=== PATIENT | female | born 1935 | race Caucasian/White ===

== ENCOUNTER 2025-04-02 07:48 | Outpatient (REF) | payer MEDICARE, MEDICAID, SELFPAY ==
--- OUTSIDE RECORDS SUMMARY | 2025-04-21 07:53 | XMS_ITS | Clinical Summary ---
Author Organization [facility] Address [address] [place] [address] Care Team Providers Care Rn Homecare Name Role Phone Marilu Ocampo MD Primary Care Provider [phone] Allergies Active AllergyReactionsCriticalityNoted DateCommentsAtorvastatinUnknown 10/22/20228544MsmofnlpvjwXteerpy11/21/2023Penicillin UJpdggit57/21/2023Sulfa OudmjeiyykdZlyxcOngv25/21/2023 bleeding Medications MedicationSigDispense QuantityRefillsLast FilledStart DateEnd DateStatus [...] ophthalmic solution 1 drop Daily as neededActive Nhcbzx-Mvyuiu-Svqrbaiq-Zn Sulf (Clear Eyes Complete) solution Administer into affected eye(s) Daily as neededActive True Metrix Blood Glucose Test test strip use 1 TEST STRIP to TEST BLOOD SUGAR three times a day02/19/2023ctive Active Problems No known active problems Encounters DateTypeDepartmentCare VjlsFtovfefoihx19/30/2025Telephone [facility] [address] [place] [address] Eleazar Hodges DPM No Show (Hx of No Shows)03/02/2025Travelfrom Last 3 Months Immunizations ImmunizationAdministration DatesNext DueInfluenza Whole05/16/2011Influenza, High Dose Seasonal, Preservative Free02/14/2018,03/07/2017,03/08/2016,03/15/2015 Influenza, High-dose Seasonal, Quadrivalent, Preservative Free02/08/2022, 02/18/2020Influenza, Seasonal, Quadrivalent, Mznwvxyiwd00/06/2021Influenza, seasonal, pfmgealtsu50/24/2014,03/23/2010Influenza, trivalent, adjuvanted 03/05/2019Pneumococcal Polysaccharide AKGU843106/11/20107710Iheq79/27/2016 Family History Medical HistoryRelationNameCommentsHeart diseaseFatherHypertensionFather HyperlipidemiaMotherHypertensionMotherMelanomaNeg HxRelationNameStatusComments FatherDeceasedMotherDeceased Social History Tobacco UseTypesPacks/DayYears UsedDateSmoking Tobacco: NeverSmokeless Tobacco: Never Tobacco Cessation:Counseling Given: Not Answered Alcohol UseStandard Drinks/WeekCommentsNot Currently0 (1 standard drink = 0.6 oz pure alcohol)CommentsUnknownSex and Gender InformationValueDate Recorded Sex Assigned at BirthNot on fileLegal GhvOqysyf34/15/2023 8:27 PM EDTGender IdentityNot on fileSexual OrientationNot on file Last Filed Vital Signs Vital SignReadingTime TakenCommentsBlood Xyrahlok797/8107 12:00 PM EDT Pulse--Temperature--Respiratory Rate--Oxygen Saturation--Inhaled Oxygen Concentration--Wwxuev28.7 kg (197 lb 12.8 oz)05/12/2024 10:11 AM ZIKQqpqbp669.5 cm (5' 2 )05/12/2024 10:11 AM ESTBody Mass Index36.18107/13/2023 10:11 AM EST Plan of Treatment Not on file Insurance Care Teams Team MemberRelationshipSpecialtyStart DateEnd Date Marilu Ocampo MD [address] [facility], [facility] [place] [address] PCP [facility]08/02/23
--- OUTSIDE RECORDS SUMMARY | 2025-04-21 07:53 | XMS_ITS | Encounter Summary ---
Author Organization [facility] tem Address [id number] [place] [address] Care Team Providers Care Polymer Scientist Name Role Phone Marilu Ocampo MD Primary Care Provider [phone] Encounter Details DateTypeDepartmentCare Team (Latest Contact Info)Jrbttybpeqz30/12/2025Telephone [facility] [address] [place] [address] [place] [address] Nia Izquierdo RN Social History Tobacco UseTypesPacks/DayYears UsedDateSmoking Tobacco: NeverSmokeless Tobacco: NeverAlcohol UseStandard Drinks/WeekCommentsNever0 (1 standard drink = 0.6 oz pure alcohol)[facility] UtilitiesAnswerDate RecordedIn the past 12 months has the gDecide, gas, oil, or water [employer] threatened to shut off services in your home?No5AUDIT-CAnswerDate RecordedFrequency of Alcohol ConsumptionNever 03/04/2019Average Number of DrinksNot on file03/04/2019Frequency of Binge DrinkingNot on file03/04/2019PHQ-2AnswerDate RecordedTotal Wlnpq235 PRAPARE - TransportationAnswerDate RecordedIn the past 12 [...] a part of a household?No5ChildcareAnswerDate RecordedChildcareUnknown 11/13/2018EmploymentAnswerDate JrdmfqpvSdtyvotadbYfqcqys93/12/2019Hunger ScreeningAnswerDate RecordedWithin the past 12 months we worried whether our food would run out before we got money to buy more.Never True03/02/2025Within the past 12 months the food we bought just didn't last and we didn't have money to get more.Never True03/02/2025Purpose - LifeAnswerDate RecordedPurpose and direction in paduQhtdlsk56/15/2021CommentsNoSex and Gender Information ValueDate RecordedSex Assigned at BirthNot on fileLegal FcaYkhrpw05/06/2015 11:21 AM EDTGender IdentityNot on fileSexual OrientationNot on filedocumented as of this encounter Miscellaneous Notes * Telephone Encounter - Nia Izquierdo RN - 04/15/2025 10:37 AM EST Patient is now in a LTC facility. documented in this encounter Plan of Treatment DateTypeDepartmentCare Team (Latest Contact Info)Volrrbowaqo10/19/2025 9:45 AM ESTAppointment [facility] [address] [place] [address] 05/19/2025 12:45 PM ESTOffice Visit [facility] [address] [place] [address] [place] [address] Eleazar Iglesias MD [facility] [place] [address] documented as of this encounter Goals GoalPatient Goal TypeAssociated ProblemsRecent ProgressPatient-Stated?Author SNF per Gely Lockhart LSW Note: Evaluation of progress towards goal: need to speak with pt when alert to discuss DC plan &/or speak with pt HCPOA documented as of this encounter Visit Diagnoses Not on filedocumented in this encounter Additional Health Concerns AssessmentNoted TimePHQ-9 Depression Total Score: 9:07 AM EDTA Body Mass Index follow-up plan has been documented for the lfowfyc7805/06/2019 1:52 PM ESTdocumented as of this encounter Care Teams Team MemberRelationshipSpecialtyStart DateEnd Date Marilu Ocampo MD [address] [facility] [place] [address] PCP - GeneralInternal Gbrworii36/4/24documented as of this encounter
--- OUTSIDE RECORDS SUMMARY | 2025-04-21 07:54 | XMS_ITS | Clinical Summary ---
Demographics Address [address] [place] [address] Home Phone Preferred Language Unknown Marital Status Unknown [employer] Affiliation Unknown Race Unknown Ethnic Group Unknown Author Organization [facility] Address [address] [place] [address], [address] [place] [address] Care Team Providers Care Inspector Boiler Name Role Phone Unavailable Primary Care Provider Unavailabl e Social History Tobacco UseTypesPacks/DayYears UsedDateSmoking Tobacco: Never Assessed CommentsUnknownSex and Gender InformationValueDate RecordedSex Assigned at Not on fileLegal RrqLvtgzi99/10/2013 6:45 PM ESTGender IdentityNot on fileSexual OrientationNot on file Plan of Treatment Not on file
--- OUTSIDE RECORDS SUMMARY | 2025-04-21 07:54 | XMS_ITS | Clinical Summary ---
Author Organization [facility] Address [address] [place] [address] Phone Care Team Providers Care Assistant Professor Of Anthropology Name Role Phone Unavailable Primary Care Provider Unavailabl e Social History Tobacco UseTypesPacks/DayYears UsedDateSmoking Tobacco: Never Assessed CommentsUnknownSex and Gender InformationValueDate RecordedSex Assigned at Not on fileLegal DqyLxcsol53/26/2022 5:42 AM ESTGender IdentityNot on fileSexual OrientationNot on file Plan of Treatment Not on file
--- OUTSIDE RECORDS SUMMARY | 2025-04-21 07:54 | XMS_ITS | Patient Health Record ---
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) ActiveconfirmedProblemHypertension (44654698)HTN (hypertension) (I10)Active confirmedProblemDiabetes mellitus type 2 (disorder) (52281517)DM2 (diabetes mellitus, type 2) (E11.9)ActiveconfirmedProblemNephrolithiasis (99084196) Nephrolithiasis (N20.0)ActiveconfirmedProblemType II diabetes mellitus uncontrolled (329301855)Diabetes mellitus type II, uncontrolled (E11.65)Active confirmedProblemAtrial fibrillation (98472081)PAF (paroxysmal atrial fibrillation) (I48.0)ActiveconfirmedProblemUlcer of left foot (disorder) (447233382)Foot ulcer, left (L97.529)ActiveconfirmedProblemHyperphosphaturia (03119422)Hyperphosphaturia (E83.39)Activeconfirmed Plan Of Treatment Pending Test Test [...] End Date [place] [address] [place] [address] [id number] Papo Josephelf - patient is the [id number] 2001[place]ICAID [place] PRIMARY ONLY [address] [place]ICE [place], [place] [id number] Papo Josephelf - patient is the [id number] 2013 Medical (General) History Medical History History ICD Code History of hyperlipidemia History of hypertensionSurgical History Surgery Date(Month/Year) cataract surgery, right History of total hysterectomy 8972-7525 History of hysterectomyHospitalization History Reason Date(Month/Year) [facility] 07/2018
--- OUTSIDE RECORDS SUMMARY | 2025-04-21 07:55 | XMS_ITS | Clinical Summary ---
Author Organization [employer] tem Address [id number] [place] [address] Care Team Providers Care Rust Proofer Name Role Phone Marilu Ocampo MD Primary Care Provider [phone] Allergies Active AllergyReactionsCriticalityNoted UawtNwkhwuhpFcholovcefchWfvlah03/01/2017 ErdxuzoshncPqweh87/01/8225TxsigyonmzmKrjuts10/01/2017Sulfa (Sulfonamide Antibiotics)pfgzpxiuPwxw16/01/2017 Medications MedicationSigDispense QuantityRefillsLast FilledStart DateEnd DateStatus acetaminophen (TYLENOL ARTHRITIS) 650 mg 8 hr tablet TAKE 1 TABLET BY MOUTH ONCE DAILY NEEDED *NEW PRESCRIPTION REQUEST* 90 tablet 1005Active Additional Information Patient taking differently: 650 mg oral As needed, pain, Reported on 03/02/2025 apixaban (ELIQUIS) 5 mg tablet Indications:Paroxysmal atrial fibrillation ([facility])TAKE 1 TABLET BY MOUTH EVERY MORNING AND 1 BEFORE BEDTIME 60 tablet 5Active acarbose (PRECOSE) 50 mg tablet Indications:Type 2 diabetes mellitus without complication, with long-term current use of insulin ([facility])TAKE 1 TABLET(50 MG) BY MOUTH IN THE [...] 24 hr tablet Indications:Essential hypertension,Paroxysmal atrial fibrillation ([facility]), Diastolic dysfunction,Nonrheumatic mitral valve regurgitationTake 1 tablet (25 mg total) by mouth in the morning. 28 tablet 5Active insulin glargine,hum.rec.anlog (BASAGLAR KWIKPEN U-100 INSULIN) 100 unit/mL (3 mL) insulin pen Indications:Type 2 diabetes mellitus without complication, with long-term current use of insulin ([facility])INJECT 25 UNITS SUBCUTANEOUSLY EVERY MORNING AND 20 UNITS EVERY EVENING 15 mL 1005Active Additional Information Patient taking differently: 25 Units subcutaneous 2 times daily, INJECT 25 UNITS SUBCUTANEOUSLY EVERY MORNING AND 20 UNITS EVERY EVENING, Reported on 03/02/2025 blood sugar diagnostic (TRUE METRIX GLUCOSE TEST STRIP) strip Indications:Type 2 diabetes mellitus without complication, with long-term current use of insulin ([facility])USE TO TEST BLOOD SUGARS TWICE DAILY *NEW [...] necrosis 03/03/2025Type 2 diabetes mellitus with pressure eqnlfg4903/03/2025ltered mental status, unspecified altered mental status type03/01/2025holedocholithiasis [...] type06/19/2024Type II diabetes mellitus with neurological manifestations 06/19/2024bnormal gait04/28/2024Need for assistance with personal care 04/28/2024ge-related osteoporosis without current pathological fracture 4Diastolic pomyptpzzbu51/26/2023Mitral valve cqzznkmparkxv32/26/2023 Tricuspid valve vhsaimejzocbq05/26/2023Carotid wwtyexvkqborutj33/26/2023Right lower quadrant abdominal pain02/18/2021Other ryvsmqivxwvbna10/17/2021 Mbzzqvswwenrxd24/17/2021Type 2 diabetes mellitus without complication, with long-term current use of nqdxxun9402/18/2021Kidney lniffy4112/15/2020 Overview (11/01/2021): 12/15/20: Recent gross hematuria. Non [...] scheduled to see gynecology as well. Gross fxmhwzuhn20/14/2021Multiple closed fractures of ribs of left side 11/15/2020evere obesity (BMI 35.0-39.9) with mdkuuzsjltz40/24/2021History of locetzegznjprh10/04/2021ssential ubhkudgxcywc12/04/2021aroxysmal atrial xxjehxzcxsat64/04/2021hest pain06/19/20208963Rxxnmzounfzf38/03/2019 Resolved Problems ProblemNoted DateDiagnosed DateResolved DateObesity (BMI 30-39.9)08/05/2020 08/25/2020 Encounters DateTypeDepartmentCare LeanRsuvxeptwta71/12/2025Telephone [facility] [address] [place] [phone] Nia Izquierdo RN 03/09/2025Refill Ghada Billingsn [facility] - Medical Oncology [address] [place] [phone] Marilu Ocampo MD 03/02/2025[facility]phone [facility] [address] [place] [phone] Marian Cochran CMA 02/28/2025 10:40 PM EDT - 03/03/2025 4:07 PM EDTHospital Encounter [facility] [address] [place] [address] Eleazar Pierre MD Muhammad, MD Terrence Rapp Muhamid M, MD Altered mental status, unspecified altered mental status type (Primary Dx) Discharge Disposition: Alf Facility-Medicare Cert02/28/2025Travel 02/10/2025[facility] [address] [place] [phone] Arvin Moreno, Age-related osteoporosis without current pathological fracture; History of ouoizlqnkqlyvj94/09/2025Refill Ghada L [facility] - Medical Oncology [address] [place] [phone] Marilu Ocampo MD 02/04/2025 9:00 AM EDTOffice Visit [facility] [address] [place] [phone] Arvin Moreno, Callus of foot (Primary Dx); Open wound of left foot, initial wolourmhq12/02/2025Travelfrom Last 3 Months Immunizations ImmunizationAdministration DatesNext DueInfluenza High Dose Preservative Free IM 02/14/2018,03/07/2017,03/08/2016,03/15/2015Influenza Vaccine, Quadrivalent, Eipsxrnhap23/06/2021Influenza Whole05/16/2011Influenza, High-dose, Quadrivalent 02/08/2022,02/18/2020Influenza, Im Trivalent Isptgnxuhfxn99/24/2014,03/23/2010 Influenza, Trivalent, Mumlreyefz07/02/2019Pneumococcal Rvijqkwhhzjmlt95/08/2011 Tdap1 Family History Medical HistoryRelationNameCommentsDiabetesMotherBreast cancerNieceBreast cancer SisterCancerSonRelationNameStatusCommentsBrotherDeceasedFatherDeceasedMaternal GrandfatherDeceasedMaternal GrandmotherDeceasedMotherDeceasedNieceAlivePaternal GrandfatherDeceasedPaternal GrandmotherDeceasedSisterDeceasedSonDeceased Social History Tobacco UseTypesPacks/DayYears UsedDateSmoking Tobacco: NeverSmokeless Tobacco: NeverAlcohol UseStandard Drinks/WeekCommentsNever0 (1 standard drink = 0.6 oz pure alcohol)[facility] UtilitiesAnswerDate RecordedIn the past 12 months has the [employer], gas, oil, or water [employer] threatened to shut off services in your home?No5AUDIT-CAnswerDate RecordedFrequency of Alcohol ConsumptionNever 03/04/2019Average Number of DrinksNot on file03/04/2019Frequency of Binge DrinkingNot on file03/04/2019PHQ-2AnswerDate RecordedTotal Asnhx870 PRAPARE - TransportationAnswerDate RecordedIn the past 12 [...] a part of a household?No5ChildcareAnswerDate RecordedChildcareUnknown 11/13/2018EmploymentAnswerDate XumizrjaAzyvqijvauGgkgtoc25/12/2019Hunger ScreeningAnswerDate RecordedWithin the past 12 months we worried whether our food would run out before we got money to buy more.Never True03/02/2025Within the past 12 months the food we bought just didn't last and we didn't have money to get more.Never True03/02/2025Purpose - LifeAnswerDate RecordedPurpose and direction in yatjSqvdqvp88/15/2021CommentsNoSex and Gender Information ValueDate RecordedSex Assigned at BirthNot on fileLegal BjsZmygdg10/06/2015 11:21 AM EDTGender IdentityNot on fileSexual OrientationNot on file Last Filed Vital Signs Vital SignReadingTime TakenCommentsBlood Cnnfcrhg446/55003/03/2025 11:57 AM EDT Egbiz874703/03/2025 11:57 AM OSWJacdhebfoqh32.6 ??C (97.8 ??F)03/03/2025 11:57 AM EDTRespiratory Ilmn643803/03/2025 11:57 AM EDTOxygen Mclzfetacf81%03/03/2025 11:57 AM EDTInhaled Oxygen Concentration--Ccykzj25.3 kg (163 lb 14.4 oz)03/03/2025 4:37 AM QOPDissqc020.5 cm (5' 2 )03/01/2025 2:31 AM EDTBody Mass Index29.98 03/01/2025 2:31 AM EDT Plan of Treatment DateTypeDepartmentCare Team (Latest Contact Info)Zpgcxgcbpsw88/19/2025 9:45 AM ESTAppointment [facility] [address] [place] [phone] 05/19/2025 12:45 PM ESTOffice Visit [facility] [address] [place] [address] [place] [address] Eleazar Iglesias MD [address] [place] [address] Health MaintenanceDue DateLast DoneCommentsMedicare Annual Wellness Visit 1935Zoster (Shingles) Vaccine (1 of 2)08/29/1985RSV ( or age 60+ yrs) (1 - 1-dose 75+ series)03/28/2011Fall Risk Uflshiggp73/25/878893/ Influenza Cnoqzdp02/09/2023, 02/08/2022, 03/09/2021, Additional history existsDepression Zfmrtegty93/08/2024Tobacco Screening DTaP,Tdap and Td Vaccines (2 - Td or Tdap)03/30/2026 03/30/2016 Goals GoalPatient Goal TypeAssociated ProblemsRecent ProgressPatient-Stated?Author SNF per eGly Lockhart LSW Note: Evaluation of progress towards goal: need to speak with pt when alert to discuss DC plan &/or speak with pt HCPOA Medical Devices ImplantedTypeAreaManufacturerDevice IdentifierShelf Expiration DateModel / Serial / LotLens Iol Ultrasert 24.0d - [id number] 24.0 - [id number] Implanted:Qty: 1 on 03/04/2019 by Nina Wheeler MD at [facility]: [id number] 24.0 / [id number] 24.0 / [id number] Procedures Procedure NamePriorityDate/TimeAssociated DiagnosisCommentsBEDSIDE GLUCOSE Xvldvyt8603/03/2025 12:22 PM EDT BEDSIDE WFBWZSWSieuaxd66/30/2025 11:59 AM EDT BEDSIDE VOBQOYZSpybgzs97/30/2025 8:22 AM EDT EXTRA TUBES BLUE VBSEswdxdr52/30/2025 5:18 AM EDT EXTRA PWNAWWhezsxm24/30/2025 5:18 AM EDT CBC WITH AUTO ACEQFQBDUSYRZukatxo76/30/2025 5:17 AM EDT KTPQDWJYFYujuggb59/30/2025 5:17 AM EDT COMPREHENSIVE METABOLIC NMGCJNrsurgd41/30/2025 5:17 AM EDT BEDSIDE POAIIKEYbfqwqf22/29/2025 7:59 PM EDT SAEKQFLCJAtayzju89/29/2025 5:46 PM EDT AOGURUMFGYuedokv61/29/2025 5:46 PM EDT BEDSIDE CZHHXXIJldurij72/29/2025 4:49 PM EDT THIAMIN (VITAMIN B1), YQKdhzxaj45/29/2025 12:59 PM EDT BEDSIDE TSOHLRVKqkmijw81/29/2025 11:35 AM EDT EXTRA TUBES BLUE ZJSGifwpdz58/29/2025 5:11 AM EDT VITAMIN D 25 HYDROXYAdd-On03/02/2025 5:11 AM EDT VITAMIN F65Lee-Oa28/29/2025 5:11 AM EDT EXTRA WXNNURsllbrd68/29/2025 5:11 AM EDT CBC WITH AUTO XDULWXPUAWLWWmulznm44/29/2025 5:11 AM EDT HKAQCUXOHMczptaw97/29/2025 5:11 AM EDT COMPREHENSIVE METABOLIC ZAGWMNmhbwdr26/29/2025 5:11 AM EDT BEDSIDE PRGIBCEIctmwkg03/29/2025 12:46 AM EDT BEDSIDE KUTMAUOIdnaujt35/28/2025 9:04 PM EDT BEDSIDE CVYRWQZUqlwopw76/28/2025 4:16 PM EDT EXTRA TUBES SST SOKKygjqwq14/28/2025 12:06 PM EDT EXTRA SYOLHZfegjgx10/28/2025 12:06 PM EDT KHBHYRCLyqocgl91/28/2025 12:06 PM EDT BEDSIDE YPVKPBRCaqtkkf11/28/2025 11:13 AM EDT BEDSIDE MRRFUHCDkatoke78/28/2025 4:23 AM EDT BEDSIDE CQAWGPFMcdtfdp95/28/2025 1:20 AM EDT TROP I, HIGH SENSITIVITY 1 LIQXNJKX02/28/2025 12:06 AM EDT XR CHEST 1 WTUTBQ9203/01/2025 12:[address] BRAIN WO FBGUQRRU86/28/2025 12:06 AM EDT ECG 12-AQFURDXD91/27/2025 11:03 PM EDT EXTRA TUBES BLUE NQNSmwxrcp80/27/2025 11:03 PM EDT EXTRA FHXBBSqjmmfk30/27/2025 11:03 PM EDT HEMOGLOBIN Q7BMok-Ke28/27/2025 10:59 PM EDT TROPONIN I, HIGH SENSITIVITY 0 BGCFHKUO80/27/2025 10:59 PM EDT TROPONIN I, HIGH SENSITIVITY 0 CWNCUDJQ53/27/2025 10:59 PM EDT QFQFKXONQJUFC79/27/2025 10:59 PM EDT COMPREHENSIVE METABOLIC ZXKUQXLUZ34/27/2025 10:59 PM EDT CBC WITH AUTO FPQIZCIAWNZCDFYK56/27/2025 10:59 PM EDT POCT NURSING URINE MACROSCOPIC OZLftxokz88/27/2025 10:56 PM EDT ER EXTRA URINE LRLYSYLEEN21/27/2025 10:54 PM EDT ER EXTRA XWQFNEPGD19/27/2025 10:54 PM EDT URINE UTGXXIARGJQ31/27/2025 10:54 PM EDT from Last 3 Months Results * (ABNORMAL) Bedside Glucose *Place/Obtain serum glucose if >500 per glucometer. (03/03/2025 12:22PM EDT) Only the most recent of12 resultswithin the time period is included. ComponentValueRef RangeTest MethodAnalysis TimePerformed AtPathologist Signature Bedside Glucose (POC)388(H)65 - 99 mg/dL03/03/2025 12:27 PM [facility])Anatomical Location / LateralityCollection Method / VolumeCollection TimeReceived Timearterial/snriifkkt76/30/2025 12:22 PM EDT03/03/2025 12:27 PM EDT Narrative Authorizing ProviderResult TypeResult StatusMarilu Ocampo MDPOINT OF CARE TEST ORDERABLESFinal ResultPerforming OrganizationAddressCity/State/ZIP CodePhone Number [address] [place] [address], * Light Blue Top (03/03/2025 5:18 AM EDT) Only the most recent of3 resultswithin the time period is included. ComponentValueRef RangeTest MethodAnalysis TimePerformed AtPathologist Signature Extra TubeAuto Oyzoolur88/30/2025 7:01 AM [facility] Specimen (Source)Anatomical Location / LateralityCollection Method / Volume Collection TimeReceived TimeBloodVenous blood / Klhmvfz4603/03/2025 5:18 AM EDT 03/03/2025 5:41 AM EDT Narrative Authorizing ProviderResult TypeResult StatusMarilu Ocampo MDLAB BLOOD ORDERABLESFinal ResultPerforming OrganizationAddressCity/State/ZIP CodePhone Number [facility] [address] [place] [address], * (ABNORMAL) CBC auto differential (03/03/2025 5:17 AM EDT) Only the most recent of3 resultswithin the time period is included. ComponentValueRef RangeTest MethodAnalysis TimePerformed AtPathologist Signature WBC8.54 - 11 x10E9/L03/03/2025 5:47 AM EDTPWAYNE [facility]ALTHC[facility]IN CAMPUSRBC Count4.463.8 - 5.2 X10E12/L03/03/2025 5:47 AM EDTPWAYNE HEALTHCARE MAIN CAMPUSHemoglobin13.811.7 - 15.5 g/dL03/03/2025 5:47 AM EDTPWAYNE HEALTHCARE MAIN CAMPUSHematocrit39.935 - 47 %03/03/2025 5:47 AM EDTPWAYNE HEALTHCARE MAIN CAMPUSMCV9080 - 100 fL03/03/2025 5:47 AM EDTPWAYNE HEALTHCARE MAIN CAMPUSMCH30.927 - 34 pg03/03/2025 5:47 AM EDTPWAYNE HEALTHCARE MAIN CAMPUSMCHC34.532 - 36 g/dL03/03/2025 5:47 AM EDTPWAYNE HEALTHCARE MAIN CAMPUSRDW13.611.5 - 15 %03/03/2025 5:47 AM EDPREMIER HEALTH MIAMI VALLEY HOSPITALPlatelet Tfrvm383017 - 450 X10E9/L03/03/2025 5:47 AM EDT [facility]MPV8.57 - 12 fL03/03/2025 5:47 AM EDT [facility]ALTHNeutrophils %49.9%03/03/2025 5:47 AM EDT [facility]ALTHLymphocytes %33.6%03/03/2025 5:47 AM EDT [facility]Monocytes %9.0%03/03/2025 5:47 AM EDT [facility]ALTHEosinophils %6.9%03/03/2025 5:47 AM EDT [facility]Basophils %0.6%03/03/2025 5:47 AM EDT [facility]ALTHNeutrophils Absolute (A)4.31.5 - 6.6 10*3/uL 03/03/2025 5:47 AM EDPREMIER HEALTH MIAMI VALLEY HOSPITALLymphocytes Absolute2.9 1.0 - 3.5 10*3/uL03/03/2025 5:47 AM EDPREMIER [facility]ALTH [facility] Monocytes Absolute0.80.0 - 0.9 10*3/uL03/03/2025 5:47 AM [facility]ITALEosinophils Absolute0.6(H)0.0 - 0.4 10*3/uL03/03/2025 5:47 AM EDPREMIER HEALTH MIAMI VALLEY HOSPITALBasophils Absolute0.00.0 - 0.2 10*3/uL 03/03/2025 5:47 AM [facility]OSPITALDifferential Type AUTOMATED HCZVZISIMLNQ95/30/2025 5:47 AM [facility] Specimen (Source)Anatomical Location / LateralityCollection Method / Volume Collection TimeReceived TimeBloodVenous blood / UnknownVenipuncture / Unknown 03/03/2025 5:17 AM EDT03/03/2025 5:40 AM EDT Narrative Authorizing ProviderResult TypeResult StatusStephanpedrito Gonzalez SUPERVISOR COAL HANDLING-CNPLAB BLOOD ORDERABLESFinal ResultPerforming OrganizationAddressCity/State/ZIP Code Phone Number [facility] [address] [place] [address], * Magnesium (03/03/2025 5:17 AM EDT) Only the most recent of4 resultswithin the time period is included. ComponentValueRef RangeTest MethodAnalysis TimePerformed AtPathologist Signature MAGNESIUM1.91.8 - 2.6 mg/dL03/03/2025 6:14 AM [facility]pecimen (Source)Anatomical Location / LateralityCollection Method / VolumeCollection TimeReceived TimeBloodVenous blood / UnknownVenipuncture / Nuzlxak6103/03/2025 5:17 AM EDT03/03/2025 5:40 AM EDT Narrative Authorizing ProviderResult TypeResult StatusStepmu Gonzalez APRN-CNPLAB BLOOD ORDERABLESFinal ResultPerforming OrganizationAddressCity/State/ZIP Code Phone Number [facility] [address] [place] [address], * (ABNORMAL) Comprehensive metabolic panel (03/03/2025 5:17 AM EDT) Only the most recent of3 resultswithin the time period is included. ComponentValueRef RangeTest MethodAnalysis TimePerformed AtPathologist Signature EJZCFH774630 - 146 mmol/L03/03/2025 6:14 AM [facility] HOSPITALPOTASSIUM3.53.5 - 5.0 mmol/L03/03/2025 6:14 AM [facility] HOSPITALCHLORIDE10398 - 109 mmol/L03/03/2025 6:14 AM [facility] HOSPITALCARBON MKMEAZT8482 - 32 mmol/L03/03/2025 6:14 AM EDT [facility]ALTHANION GAP85 - 15 mmol/L03/03/2025 6:14 AM EDT [facility]ALTHBLOOD UREA UMBFHUOI678 - 27 mg/dL03/03/2025 6:14 AM [facility] HOSPITALCREATININE0.630.40 - 1.00 mg/dL 03/03/2025 6:14 AM [facility] HOSPITALComment:METHOD TRACEABLE TO IDMS OINDVCVQDZAGRVI437(H)65 - 99 mg/dL03/03/2025 6:14 AM EDT [facility]ALTHCALCIUM8.4(L)8.5 - 10.5 mg/dL03/03/2025 6:14 AM EDPREMIER HEALTH MIAMI VALLEY HOSPITALTOTAL PROTEIN5.7(L)6.0 - 8.0 g/dL 03/03/2025 6:14 AM [facility] HOSPITALALBUMIN3.33.2 - 5.3 g/dL03/03/2025 6:14 AM [facility] HOSPITALALKALINE QGPOSYBTQCX0610 - 130 U/L03/03/2025 6:14 AM [facility]OSPITALAST17<=41 U/L03/03/2025 6:14 AM [facility] ALT18<=31 U/L03/03/2025 6:14 AM [facility] BILIRUBIN,TOTAL1.4(H)0.3 - 1.2 mg/dL03/03/2025 6:14 AM [facility] HOSPITALEGFR Non-Race Aiayavaoz75>=60 ml/min/1.73sq.m003/03/2025 6:14 AM [facility]OSPITALComment: eGFR not reported due to non-numeric value for Creatinine. Reported eGFR is based on the CKD-EPI 2020 equation that does not use a race coefficient. Specimen (Source)Anatomical Location / LateralityCollection Method / Volume Collection TimeReceived TimeBloodVenous blood / UnknownVenipuncture / Unknown 03/03/2025 5:17 AM EDT03/03/2025 5:40 AM EDT Narrative Authorizing ProviderResult TypeResult StatusStepmu Gonzalez APRN-CNPLAB BLOOD ORDERABLESFinal ResultPerforming OrganizationAddressCity/State/ZIP Code Phone Number [address] [place] [address], * Potassium (03/02/2025 5:46 PM EDT)ComponentValueRef RangeTest MethodAnalysis TimePerformed AtPathologist SignaturePOTASSIUM3.73.5 - 5.0 mmol/L03/02/2025 6:03 PM [facility]pecimen (Source)Anatomical Location / LateralityCollection Method / VolumeCollection TimeReceived Time BloodVenous blood / UnknownVenipuncture / Oyjgzqo7003/02/2025 5:46 PM EDT 03/02/2025 5:48 PM EDT Narrative Authorizing ProviderResult TypeResult StatusMuhamfilippo Ocampo MDLAB BLOOD ORDERABLESFinal ResultPerforming OrganizationAddressCity/State/ZIP CodePhone Number [address] [place] [address], * Thiamin (Vitamin B1), WB (03/02/2025 12:59 PM EDT)ComponentValueRef RangeTest MethodAnalysis TimePerformed AtPathologist SignatureTHIAMIN (VITAMIN B1), [place] [address] - 180 nmol/L1 4:[address] [facility] [address] [facility] LABORATORIESComment: ADDITIONAL INFORMATION This test was developed and its performance characteristics determined by [facility] in a manner consistent with CLIA requirements. This test has not been cleared or approved by the U.S. Food and Drug Administration. Test Performed by: [place] [address] Server Programmer: Thai Barroso Ph.D.; CLIA# [id number] Specimen (Source)Anatomical Location / LateralityCollection Method / Volume Collection TimeReceived TimeBloodVenous blood / UnknownVenipuncture / Unknown 03/02/2025 12:59 PM EDT03/02/2025 1:07 PM EDT Narrative Authorizing ProviderResult TypeResult StatusTaeler Hank BULLOCKN-CNPEDUAR BLOOD ORDERABLESFinal ResultPerforming OrganizationAddressCity/State/[facility] CodePhone Number [facility] [address] [place] [phone], * (ABNORMAL) Vitamin D 25 hydroxy (03/02/2025 5:11 AM EDT)ComponentValueRef RangeTest MethodAnalysis TimePerformed AtPathologist SignatureVITAMIN D 25 HYD TOT19.6(L)30.0 - 100.0 ng/mL03/02/2025 10:42 PM [facility] LABORATORYSpecimen (Source)Anatomical Location / LateralityCollection Method / VolumeCollection TimeReceived TimeBloodVenous blood / UnknownVenipuncture / Ldbfuhr7703/02/2025 5:11 AM EDT03/02/2025 5:48 AM EDT Narrative [facility] - 03/02/2025 10:42 PM EDT Vitamin D status 25 [place] Vitamin D Deficiency <20 ng/mL Insufficiency ? 20-29 ng/mL Sufficiency ? 30-100 ng/mL Toxicity >100 ng/mL NOTE: A pediatric reference range has not been established by the cold storage worker of this kit. The [place] [employer] recommends a Vitamin D level of = or >20ng/mL in infants and children. Authorizing ProviderResult TypeResult StatusTaeler Hank COLLINSVertive ([email or web address])ROGELIO BLOOD ORDERABLESFinal ResultPerforming OrganizationAddressCity/State/ZIP CodePhone Number [facility] [address] [place] [address], * Vitamin B12 (03/02/2025 5:11 AM EDT)ComponentValueRef RangeTest MethodAnalysis TimePerformed AtPathologist SignatureVITAMIN [id number] - 914 pg/mL03/02/2025 10:39 PM [facility] LABORATORYSpecimen (Source)Anatomical Location / LateralityCollection Method / VolumeCollection TimeReceived Time BloodVenous blood / UnknownVenipuncture / Uqludrf0603/02/2025 5:11 AM EDT 03/02/2025 5:48 AM EDT Narrative Authorizing ProviderResult TypeResult StatusTaeler Hank COLLINSVertive ([email or web address])ROGELIO BLOOD ORDERABLESFinal ResultPerforming OrganizationAddressCity/State/ZIP CodePhone Number [facility] [address] [place] [address], * SST TOP (03/01/2025 12:06 PM EDT)ComponentValueRef RangeTest MethodAnalysis TimePerformed AtPathologist SignatureExtra TubeAuto Booxthsr15/28/2025 2:01 PM EDTPUPPER VALLEY MEDICAL CENTERpecimen (Source)Anatomical Location / LateralityCollection Method / VolumeCollection TimeReceived TimeBloodVenous blood / Reaxhvb6503/01/2025 12:06 PM EDT03/01/2025 12:09 PM EDT Narrative Authorizing ProviderResult TypeResult StatusRuqihaley Sapp MDLAB BLOOD ORDERABLESFinal ResultPerforming OrganizationAddressty/State/ZIP CodePhone Number [address] [address], [place] * Ammonia (03/01/2025 12:06 PM EDT)ComponentValueRef RangeTest MethodAnalysis TimePerformed AtPathologist LljxdlhuoGLSYVHO6102 - 35 umol/L03/01/2025 12:30 PM EDSOUTHVIEW MEDICAL CENTERpecimen (Source)Anatomical Location / LateralityCollection Method / VolumeCollection TimeReceived TimeBloodVenous blood / UnknownVenipuncture / Qefknjf9703/01/2025 12:06 PM EDT03/01/2025 12:08 PM EDT Narrative Authorizing ProviderResult TypeResult StatusKyle D Santoshotzer SUPERVISOR COAL HANDLING-CNPLAB BLOOD ORDERABLESFinal ResultPerforming OrganizationAddressCity/State/ZIP CodePhone Number [address] [place] [address], [place] * Troponin I, High Sensitivity 1 Hour (03/01/2025 12:06 AM EDT)ComponentValueRef RangeTest MethodAnalysis TimePerformed AtPathologist SignatureTROPONIN I, HIGH SENSITIVITY3<16 ng/L03/01/2025 1:23 AM [facility] Specimen (Source)Anatomical Location / LateralityCollection Method / Volume Collection TimeReceived TimeBloodVenous blood / UnknownVenipuncture / Unknown 03/01/2025 12:06 AM EDT03/01/2025 12:26 AM EDT Narrative Authorizing ProviderResult TypeResult StatusStevgina Pierre MDLAB BLOOD ORDERABLES Final ResultPerforming OrganizationAddressty/State/ZIP CodePhone Number [address] [address], [place] * X-ray chest 1 view (03/01/2025 [...] on 03/01/2025 12:52 AM Authorizing ProviderResult TypeResult StatusSteven Kal Pierre [facility]G DIAGNOSTIC IMAGING ORDERABLESFinal Result * CT brain [...] pole. No sign of ventricular outflow obstruction. Bbqo-lm-jfvyblvp global parenchymal volume loss notable disproportionate hippocampal [...] pole. No sign of ventricular outflow obstruction. Acyh-gk-izpavukd global parenchymal volume loss notable disproportionate hippocampal [...] on 03/01/2025 12:51 AM Authorizing ProviderResult TypeResult StatusStsandeep Pierre MDLuca CT ORDERABLES Final Result * ECG 12 lead (02/28/2025 11:03 PM EDT)Specimen (Source)Anatomical Location / LateralityCollection Method / VolumeCollection TimeReceived Time02/28/2025 11:03 PM EDT Narrative TRACEMASTERVUE - 03/29/2025 2:03 PM EDT Authorizing ProviderResult TypeResult StatusEleazar ANNE ORDERABLESFinal ResultPerforming OrganizationAddressCity/State/ZIP CodePhone Number TRACEMASTERVUE * Troponin I, High Sensitivity 0 Hour (02/28/2025 10:59 PM EDT)ComponentValueRef RangeTest MethodAnalysis TimePerformed AtPathologist SignatureTROPONIN I, HIGH SENSITIVITY3<16 ng/L02/28/2025 11:30 PM EDTPROM[facility] Specimen (Source)Anatomical Location / LateralityCollection Method / Volume Collection TimeReceived TimeBloodVenous blood / UnknownVenipuncture / Unknown 02/28/2025 10:59 PM EDT02/28/2025 11:03 PM EDT Narrative Authorizing ProviderResult TypeResult StatusEleazar BAUM BLOOD ORDERABLES Final ResultPerforming OrganizationAddressCity/State/ZIP CodePhone Number [facility] [address] [place] [address], * (ABNORMAL) Hemoglobin A1c (02/28/2025 10:59 PM EDT)ComponentValueRef RangeTest MethodAnalysis TimePerformed AtPathologist SignatureHEMOGLOBIN A1C11.5(H)4.4 - 5.6 %03/02/2025 11:39 AM [facility]ORYComment: ?ADA Guidelines ?Result ?HgbA1c ? Normal : ? less than 5.7 % ? Prediabetes : ?5.7 % ??to 6.4 % Diabetes : > 6.4 % ?Use with caution in patients with abnormal hemoglobin variants as ??the half-life of red blood cells and in vivo glycation rates are ??affected. EST. AVERAGE WNXXMLA549yh/dL03/02/2025 11:39 AM [facility] LABORATORYSpecimen (Source)Anatomical Location / LateralityCollection Method / VolumeCollection TimeReceived TimeBloodVenous blood / UnknownVenipuncture / Xmvogbr4202/28/2025 10:59 PM EDT02/28/2025 11:03 PM EDT Narrative Authorizing ProviderResult TypeResult StatusRuqihaley Sapp MDLAB BLOOD ORDERABLESFinal ResultPerforming OrganizationAddressCity/State/ZIP CodePhone Number [facility] [address] [place] [address], * (ABNORMAL) POCT Nursing Urine Macroscopic UA (02/28/2025 10:56 PM EDT) ComponentValueRef RangeTest MethodAnalysis TimePerformed AtPathologist [facility] Urine Specific Gravity1.0101.010, 1.015, 1.020, 1.7826602/28/2025 10:[facility] Urine Leukocyte Esterase DfemqgieYemhgfnn86/27/[address] [facility] KvvpfefAvmvolrhFbhmitif85/27/2025 10:59 PM [facility] Urine pH6.05.0, 6.0, 6.5, 7.0, 7.5, 8.0, 8.5, 5. 10:59 PM [facility] Urine ProteinNegativeNegative 02/28/2025 10:59 PM [facility] Urine Glucose >=1000 mg/dL(A)Rzrmesfz20/27/2025 10:59 PM [facility] Urine ChnzlugOnycetssDwqczhbo25/27/2025 10:59 PM [facility] Urine Urobilinogen0.2 E.U./dL02/28/2025 10:59 PM [facility] Urine BilirubinNegativeNegative 02/28/2025 10:59 PM [facility] Urine Blood/HGB Trace(A)Khnjejhu23/27/2025 10:59 PM [facility] Specimen (Source)Anatomical Location / LateralityCollection Method / Volume Collection TimeReceived QtsfZckau90/27/2025 10:56 PM EDT02/28/2025 10:59 PM EDT Narrative Authorizing ProviderResult TypeResult StatusEleazar Pierre MDPOINT OF CARE TEST ORDERABLESFinal ResultPerforming OrganizationAddressty/State/ZIP CodePhone Number [address] [place] [address], [place] * Extra Urine [place] (02/28/2025 10:54 PM EDT)ComponentValueRef RangeTest Method Analysis TimePerformed AtPathologist SignatureExtra TubeAuto Resulted 03/01/2025 12:02 AM [facility] An[facility] Location / LateralityCollection Method / VolumeCollection Time Received TimeUrineUrine specimen collection, clean catch / Mgrskgb6002/28/2025 10:54 PM EDT02/28/2025 11:03 PM EDT Narrative Authorizing ProviderResult TypeResult StatusStsandeep GRAHAM ORDERABLES Final ResultPerforming OrganizationAddDelaware County Memorial Hospitalty/State/ZIP CodePhone Number [address] [place] [address], [place] * Extra Urine (02/28/2025 10:54 PM EDT)ComponentValueRef RangeTest Method Analysis TimePerformed AtPathologist SignatureExtra TubeAuto Resulted 03/01/2025 12:02 AM [facility]Mer[facility] Hospitalimen (Source) Anatomical Location / LateralityCollection Method / VolumeCollection Time Received TimeUrineUrine specimen collection, clean catch / Gilaqlq8702/28/2025 10:54 PM EDT02/28/2025 11:03 PM EDT Narrative Authorizing ProviderResult TypeResult StatusStsandeep GRAHAM ORDERABLES Final ResultPerforming OrganizationAddDelaware County Memorial Hospitalty/State/ZIP CodePhone Number [address] [place] [address], [place] * (ABNORMAL) Urine Culture Urine, Clean Catch Midstream (02/28/2025 10:54 PM EDT)ComponentValueRef RangeTest MethodAnalysis TimePerformed AtPathologist SignatureCULTURE RTVXTYY05,000-50,000 CFU/mL Escherichia coli(A)03/03/2025 8:19 AM [facility] LABORATORYSpecimen (Source)Anatomical Location / LateralityCollection Method / VolumeCollection TimeReceived Time UrineUrine specimen collection, clean catch / Skbsfte9102/28/2025 10:54 PM EDT 02/28/2025 11:03 PM EDT Narrative [facility] - 03/03/2025 8:19 AM EDT Along [...] Sulfamethoxazole <=1.0: Susceptible Authorizing ProviderResult TypeResult StatusSteven Wing MDMICROBIOLOGY - GENERAL ORDERABLESFinal ResultPerforming OrganizationAddressCity/State/ZIP Code Phone Number [facility] [address] [place] [address], from Last 3 Months Insurance Advance Directives TypeDate RecordedPatient RepresentativeExplanationDNR Physician Order03/11/2021 11:35 AMAdvance Directive02/08/2021 1:30 PMMedical POA/Living Will * DNR [employer] (DNR-CCA) [place] (Latest Code Status on File) Date ActivatedDate InactivatedComments03/01/2025 1:09 AM03/03/2025 6:07 PM * DNR [employer] Arrest (DNR-CCA[place] ActivatedDate InactivatedComments02/18/2021 8:49 PM02/21/2021 2:59 PM * Full Code Date ActivatedDate InactivatedComments11/15/2020 8:42 PM11/24/2020 3:34 PM * DNR [employer]fort Care Arrest (DNR-CCA) [place] ActivatedDate InactivatedComments06/19/2020 4:13 PM06/19/2020 8:31 PM Care Teams Team MemberRelationshipSpecialtyStart DateEnd Date Marilu Ocampo MD [address] [place] [address] PCP - GeneralInternal Qdtsthsf10/4/24
--- OUTSIDE RECORDS SUMMARY | 2025-04-21 07:55 | XMS_ITS | Patient Health Record ---
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 Stress is when someone feels tense, nervous, anxious, or can't sleep at nightbecause their mind is troubledNot at allpatient entered dataIn the past year have you spent more than 2 nights in a row in a [facility], senior living, custodial center, orjuvenile correctional facility?Nopatient entered dataAre you [...] Type II diabetes ezio litus without complication (549416086) Type 2 diabetes mellitus without complications (E11.9) ActiveconfirmedProblemLong-term current use of insulin (845715679)FPC (current) use of insulin (Z79.4)ActiveconfirmedProblemEssential hypertension (94048058)Essential (primary) hypertension (I10)Activeconfirmed Comment:BP just above goal range will increase hctz continue losartan,Description:Essential hypertension ProblemAnxiety (29935581)Anxiety (F41.9)Activeconfirmed Comment:Continue with current drug regimen as able Continue developing coping strategies as able If mood intensifies, call office for further evaluation or go to ER, ProblemGastroesophageal reflux disease (343496921)GERD (gastroesophageal reflux disease) (K21.9)Activeconfirmed Comment:Recent onset heartburn triggered by specific food. Take pepcid as needed. Avoid irritating foods., ProblemHyperlipidemia (08048965)Hyperlipidemia (E78.5)03/21/2006ctiveconfirmed ProblemFunctional bowel disease (19915366)Functional bowel disease (K58.9) 04/13/2009ctiveconfirmedDescription:Irritable bowel syndromeProblemOsteoporosis (08262903)OP (osteoporosis) (M81.0)03/21/2006ctiveconfirmed Description:OsteoporosisProblemAtrial fibrillation (92937111)Atrial fibrillation (I48.91)Activeconfirmed Comment:recently hospitalized d/t recurrence of a-fib. patient had been previously diagnosed years ago but then was not followed by cardiology or PCP for years. 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)ActiveconfirmedProblemHip pain (98249041)Hip pain (M25.559)InactiveconfirmedProblemTear film insufficiency (31177943)Dry eyes, bilateral (H04.123)InactiveconfirmedProblemDry skin (87284637)Dry skin (L85.3) InactiveconfirmedComment:encouraged to moisturise regularly to prevent itching, ProblemWeakness of both legs (886189535931701)Weakness of both legs (R29.898) InactiveconfirmedComment:Will order PT, HH, and [employer] for strength training and gait training,ProblemNeck pain (89142077)Neck pain (M54.2)Inactiveconfirmed Comment:-advised OK to continue icing or using warm water treatment -having MRI of head done, ProblemHypocalcemia (1944328)Hypocalcemia (E83.51)Problem resolvedconfirmed ProblemVitiligo (44720745)Vitiligo (L80)Problem resolvedconfirmedProblem Paroxysmal supraventricular tachycardia (44076546)Paroxysmal supraventricular tachycardia (I47.1)06/10/2008Problem resolvedconfirmedProblemPerforation of tympanic membrane (78945781)Ear drum perforation (H72.90)Problem resolved confirmedComment:one large risk factor is nasal CPAP - will disallow from healing. likely causer for dizziness and hearing loss,Description:Perforation of tympanic membraneProblemRenal stone (85458261)Renal stone (N20.0)Problem resolvedconfirmedComment:currently asymptomatic. Keep appointment as scheduled with enamel burner . stay well-hydrated. monitor blood sugar daily. any onset hematuria, fever, abdominal pain, N/V should seek evaluation.,Problem Hypoglycemia (949349088)Hypoglycemia (E16.2)Problem resolvedconfirmedProblem Diverticulitis of colon (349226477)Diverticulitis of colon (K57.32)03/21/2006 Problem resolvedconfirmedProblemConstipation (40729416)CN (constipation) (K59.00)06/10/2008Problem resolvedconfirmedDescription:ConstipationProblem History of malignant neoplasm of brain (558403964)History of brain tumor (Z87.898)Problem resolvedconfirmedProblemSevere acute respiratory syndrome coronavirus 2 detected (finding) (4359386742118792)COVID-19 virus detected (U07.1)Problem resolvedconfirmedComment:patient has improved since having infection. no current concerns. has completed self-isolation period.,Problem Blood chemistry abnormal (126842360)Elevated TSH (R79.89)Problem resolved confirmedComment:due to recheck TSH,ProblemHealed pyelonephritis (disorder) (965746692)History of pyelonephritis (Z87.448)Problem resolvedconfirmed Plan Of Treatment Pending Test Test Name Order Date Vitamin D, 25-Hydroxy (75003) 04/09/2019 Insurance Providers Payer Name Payer Address Payer Phone Subscriber Number Group Number Insured Name Patient Relationship to Insured Coverage Start Date Coverage End Date Medicare NGS PPS [address] [place], [place] [id number] Riley Joseph - patient is the [id number] 2001DMedicaid[address] [place], [place] [id number], GraceSelf - patient is the [id number] 2023Medicaid Crossover[address] [place], [place] [id number], GraceSángel - patient is the [id number] 2023 Medical (General) History Medical History History [...]
== END 2025-04-02 07:49 | disposition home or self-care (01) ==
LOC: LAB 07:48
PROVIDERS: PCP Family Medicine; Visit Provider Physician Assistant
DX: R22.42 Localized swelling, mass and lump, left lower limb (principal); L85.1 Acquired keratosis [keratoderma] palmaris et plantaris

== ENCOUNTER 2025-04-02 15:15 | Outpatient (OUT) | payer MEDICARE, MEDICAID, SELFPAY ==
--- OUTSIDE RECORDS SUMMARY | 2019-06-18 05:30 | XMS_ITS | Continuity of Care Document ---
Author Organization [facility] Physicians Address [address] [place] [address] Phone Care Team Providers Care Poker Room Manager Name Role Phone Melanie Angulo MD, John Unavailable Unavailable Allergies, Adverse Reactions, Alerts Substance Reaction Status Criticality sulfabenzamide swelling Active No Informatio n PENICILLIN Cough Active No Information Medications Medication Instructions Dosage Effective Dates (start - stop) Status Comments Cardiamin 200 mcg-500 unit-200 mg capsule - Active Lipitor 40 mg tablet take 1 tablet by or al route every day 40 MG - Active Fani 128 2 % eye drops - Active Procedures Procedure Date Ophthal DX Image Post Retina I And R Uni Or Bi OFFICE/OUTPATIENT VISIT, NEW OCT No Charge Uni Or Bi Advance Directives Directive Yes / No Effective Date File Name No Information Encounters Encounter Description Practice Location Reason(s) For Visit Diagnoses Date Provider Providers Copied on Encounter OFFICE/OUTPAT IENT VISIT, [place] [facility] , [address] [place], [address], [place] tel:[phone] [place] retinal break (chief complaint) Floaters (chief complaint) PseudophakiaFuchs' corneal dystrophyVitreous degeneration, bilateralType 2 diabetes mellitus without complication 0 Melanie Lopez. [address], [address], [place], [place], [id number] , [place]. tel:[phone] Referring Provider: Rocio Echeverria, [address], [place], [address]. tel:[phone] Family History Family Member Type Diagnosis Age At Onset Problem (finding) Family history of Cance r Problem (finding) Family history of Diabe santa mellitus Payers Payer name Insurance type Covered alliance party ID Authoriza tiradha(s) Medicare [facility] [id number] Medicaid [facility] [id number] Social History Type Description Quantity Date Captured Comments Alcohol Use Details No Caffeine Use Details No Tobacco Use Status Current non-smoker Smoking Status Never smoker Non-Smoking Tobacco Use Details : No Details Available : No Details Available [id number] SexFemale Vital Signs Date / Time: Height Weight BMI Pulse Rate Blood Pressure Temperature Respiratory Rate Body Surface Area Head Circumference Head Circ. Percentile Wt./Jaime. Percentile BMI percentile Pulse Ox Inhaled Ox 9:41 AM 139/77 mm[Hg] Chief Complaint And Reason For Visit From encounter dated '06/18/2019 09:30'. retinal break (chief complaint). Description: The 83 year old female presents for evaluation of retinal break in the right eye. Hx of cornea problems OD. Floaters (chief complaint). Description: The patient is present for evaluation of Floaters in the right eye. It started about 1 month(s) ago. It occurs frequently. The onset was gradual. The condition is moderate. The condition is described as seeing black spots. Patient denies eye pain and flashes. Reason For Referral Reason For Referral No Information History Of Present Illness Encounter Date Complaint History Of Prese nt Illness retinal break The 83 year old female presents for evaluation of retinal break in the right eye. Hx of cornea problems OD. Floaters The patient is p resent for evaluation of Floaters in the right eye. It started about 1 month(s) ago. It occurs frequently. The onset was gradual. The condition is moderate. The condition is described as seeing black spots. Patient denies eye pain and flashes. Functional Status Date Functional Assessmen t No Information Instructions Date Instruction Additional Infor mation Impression/Plan Related to Pseud ophakia Impression/Plan Related to Fuchs ' corneal dystrophy Impression/Plan Related to Vitre ous degeneration, bilateral Impression/Plan Related to Type 2 diabetes mellitus without complication Assessments Type Assessment Date assessment Pseudophakia impression Pseudophakia: Z96.1. Bilateral J assessment Fuchs' corneal dystrophy 2019 impression Fuchs' corneal dystrophy: H18.51 . Bilateral assessment Vitreous degeneration, bilateral impression Vitreous degeneration, bilateral : H43.813. Bilateral assessment Type 2 diabetes mellitus without complication impression Type 2 diabetes damon itus without complication: E11.9. Bilateral Patient Care Teams Name Effective Dates (start - stop) Status Members No Information
--- OUTSIDE RECORDS SUMMARY | 2025-04-02 15:25 | XMS_ITS | Clinical Summary ---
Author Organization [facility] Address [address] [place] [address] Care Team Providers Care Human Geography Faculty Member Name Role Phone Marilu Ocampo MD Primary Care Provider [phone] Allergies Active AllergyReactionsCriticalityNoted DateCommentsAtorvastatinUnknown 10/22/20221546UrfvwdalqjdFypkxun53/21/2023Penicillin RLblxwnj18/21/2023Sulfa CqzkpkllgquOosjsGycu12/21/2023 bleeding Medications MedicationSigDispense QuantityRefillsLast FilledStart DateEnd DateStatus potassium citrate CR (Urocit-K-15) 15 mEq ER tablet every 12 (twelve) hours.Active losartan-hydroCHLOROthiazide (Hyzaar) 50-12.5 MG tablet 1 (one) time each day at the same time.Active dilTIAZem CD (Cartia XT) 180 MG 24 hr capsule 1 capsule 1 (one) time each day at the same time.Active betamethasone dipropionate 0.05 % cream apply to affected areas on abdomen, back (avoid face and skin folds) Externally bid prn (hold when clear) for 30 days3Active atorvastatin (Lipitor) 40 MG tablet 1 (one) time each day at the same time.Active VITAMIN D PO Vitamin DActive Acarbose (PRECOSE PO) PrecoseActive Insulin Detemir (LEVEMIR FLEXPEN SC) Levemir FlexPenActive Apixaban (ELIQUIS PO) EliquisActive triamcinolone (Kenalog) 0.1 % cream Indications:Xerosis cutis1 application to affected areas on the body avoiding face, groin, and axilla topically bid as needed for 30 day(s) 454 g ctive acetaminophen (Tylenol 8 Hour) 650 MG ER tablet Take 650 mg by mouth every 8 (eight) hours if neededActive Basaglar KwikPen 100 UNIT/ML pen inject 20 units subcutaneously twice a dayActive metFORMIN XR (Glucophage-XR) 500 MG 24 hr tablet Take 500 mg by mouth in the morning and 500 mg in the evening. Take with meals. Active metoprolol succinate XL (Toprol-XL) 25 MG 24 hr tablet Take 25 mg by mouth in the morning.05/16/2023ctive omeprazole (PriLOSEC) [address] capsule Take 40 mg by mouth in the morning.Active sertraline (Zoloft) 50 MG tablet Take 50 mg by mouth Daily05/01/2023ctive sodium chloride (Fnai 128) 2 % ophthalmic solution 1 drop Daily as neededActive Ifffsa-Jukuhr-Cxvrhnck-Zn Sulf (Clear Eyes Complete) solution Administer into affected eye(s) Daily as neededActive True Metrix Blood Glucose Test test strip use 1 TEST STRIP to TEST BLOOD SUGAR three times a day02/19/2023ctive Active Problems No known active problems Encounters DateTypeDepartmentCare KoyjJchifprzsyj92/30/2025Telephone [facility] [address] [place] [address] Eleazar Hodges DPM No Show (Hx of No Shows)03/02/2025Travelfrom Last 3 Months Immunizations ImmunizationAdministration DatesNext DueInfluenza Whole05/16/2011Influenza, High Dose Seasonal, Preservative Free02/14/2018,03/07/2017,03/08/2016,03/15/2015 Influenza, High-dose Seasonal, Quadrivalent, Preservative Free02/08/2022, 02/18/2020Influenza, Seasonal, Quadrivalent, Nrqdemynvo98/06/2021Influenza, seasonal, /24/2014,03/23/2010Influenza, trivalent, adjuvanted 03/05/2019Pneumococcal Polysaccharide VABP244106/11/20101479Javf57/27/2016 Family History Medical HistoryRelationNameCommentsHeart diseaseFatherHypertensionFather HyperlipidemiaMotherHypertensionMotherMelanomaNeg HxRelationNameStatusComments FatherDeceasedMotherDeceased Social History Tobacco UseTypesPacks/DayYears UsedDateSmoking Tobacco: NeverSmokeless Tobacco: Never Tobacco Cessation:Counseling Given: Not Answered Alcohol UseStandard Drinks/WeekCommentsNot Currently0 (1 standard drink = 0.6 oz pure alcohol)CommentsUnknownSex and Gender InformationValueDate Recorded Sex Assigned at BirthNot on fileLegal WjfHrhhan14/15/2023 8:27 PM EDTGender IdentityNot on fileSexual OrientationNot on file Last Filed Vital Signs Vital SignReadingTime TakenCommentsBlood Ggkobyzr470/8107 12:00 PM EDT Pulse--Temperature--Respiratory Rate--Oxygen Saturation--Inhaled Oxygen Concentration--Qnuvbl70.7 kg (197 lb 12.8 oz)05/12/2024 10:11 AM TUXGcsdmq466.5 cm (5' 2 )05/12/2024 10:11 AM ESTBody Mass Index36.18107/13/2023 10:11 AM EST Plan of Treatment Not on file Insurance Care Teams Team MemberRelationshipSpecialtyStart DateEnd Date Marilu Ocampo MD [address], [facility] [place] [address] [facility]
--- OUTSIDE RECORDS SUMMARY | 2025-04-02 15:25 | XMS_ITS | Patient Health Record ---
Author Organization [facility] vices Address [address] [place], [place] [address] Care Team Providers Care Cognos Bi Developer Name Role Phone Trini De León Primary Care Provider Allergies Allergen (clinical drug ingredient) Drug/Non Drug Allergy documented on EMR Reaction Allergy Type Onset Date Status penicillin G Penicillin G Pot in Dextrose Cough Drug Allergy 08/17/2020 Active mirtazapine Remeron Comments: flu like symptoms Drug Allergy 08/17/2020 Active sulfadiazine sulfADIAZINE Edema Drug Allergy 08/17/2020 Active atorvastatin Atorvastatin Comments: Reflux Drug Allergy 08/17/2020 Active Reason For Referral No Information Medications Medication SIG (Take, Route, Frequency, Duration) Notes Start Date End Date Status Easy Touch Pen Red Devil 31G X 8 MM use 1 PEN NEEDLE to inject MEDICATION subcutaneously twice a day; Duration: 45 ActiveNystatin 165415 UNIT/GMas directed External Twice a day; Duration: 15 Not-TakingBlood Glucose Test1 (one) In Vitro three times daily; Duration: 90 days01/21/2015Not-TakingSertraline HCl 50 MGtake 1 tablet by mouth once daily; Duration: 90ActiveAcetaminophen ER 650 MG1 tablet as needed Orally once a day 02/07/2023ctiveEliquis 5 MG1 tablet Orally Twice a day; Duration: 90 daysActive metFORMIN HCl ER 500 MGtake 1 tablet by mouth twice a day with meals; Duration: 90ActiveAcarbose 50 MGtake 1 tablet with a meal Orally twice a day; Duration: 90 daysActiveLosartan Potassium 50 MG1 tablet Orally Once a day; Duration: 90 days ActiveAtorvastatin Calcium 20 MG1 tablet Orally Once a day; Duration: 90 days ActiveMetoprolol Succinate ER 25 MG1 tablet Orally Once a day; Duration: 90 days ActiveBasaglar KwikPen 100 UNIT/ML20 units Subcutaneous twice a day; Duration: 90 daysActive Immunizations Vaccine Route Administration Date Status Comme nts *Pneumococcal polysaccharide ACJ63-Hsvcwyh IM Intramuscular 04/11/2011 Administered Status:Prelim inary ,Reason:Given or N/A Influenza (split), 3 yrs and above IM Intramuscular 03/23/2010 Administered Status:Prelim inary ,Reason:Given or N/A Influenza (split), 3 yrs and above IM Intramuscular 02/25/2014 Administered Status:Comple te ,Reason:Given or N/A Influenza (split), 3 yrs and above OTH Other/Miscellaneous 03/15/2015 Administered Status:Comple te ,Reason:Given or N/A Influenza, high dose seasonal OTH Other/Miscellaneous 03/07/2017 Administered Status:Comple te ,Reason:Given or N/A ,see scanned document Influenza, high dose seasonal OTH Other/Miscellaneous 02/14/2018 Administered Status:Comple te ,Reason:Given or N/A ,see scanned document Social History Tobacco Use: Social History Observation Description Date Details (start date - stop date) Never Smoker NA - NA Sex Assigned At : Social History Observation Description Sex Assigned At Female Household Question Answer Notes Number of adults in household: 1 Number of children in household:0Tobacco Use/Smoking Question Answer Notes Tobacco use: nonsmoker patient enter ed data CAGE-AID Questionnaire (2018 Edition) Question Answer Notes Have you ever felt that you ought to cut down on your drinking or drug use? No patient entered data Have people annoyed you by c riticizing your drinking or drug use? No patient entered data Have you ever felt bad or gu ilty about your drinking or drug use? No patient entered data Have you ever had a drink or used drugs first thing in the morning to steady your nerves or to get rid of a hangover? No patient entered data CAGE-AID Score 0 InterpretationNegativePRAPARE Question Answer Notes Date Completed/Updated: 05/17/2023 kamari nt entered data What is your current housing situation? I have housing patient entered data Are you worried about losing your housing? No patient entered data What is the highest level of school that you have finished? High school diploma or GED patient entered data What is your current work situation? Otherwise unemployed but not seeking work (ex. 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 Check all that apply I do not have problems meeting my needs Has lack of transportation kept you from medical appointments, meetings, work or from getting things needed for daily living?NoHow often do you see or talk to people that you care about and feel close to? (For example: talkingto friends on the phone, visiting friends or family, going to yazidism or club meetings)1 or 2 times a weekpatient entered dataHow stressed are you? Stress is when someone feels tense, nervous, anxious, or can't sleep at nightbecause their mind is troubledNot at allpatient entered dataIn the past year have you spent more than 2 nights in a row in a prison, halfway, assisted center, orjuvenile correctional facility?Nopatient entered dataAre you a refugee?Nopatient entered dataWhat country are you from?[place] Statespatient entered dataDo you feel physically and emotionally safe where you currently live?Yespatient entered dataIn the past year, have you been afraid of your partner or ex-partner?Nopatient entered dataPRAPARE Score:5 Problems Problem Type SNOMED Code ICD Code Onset Dates Problem Status W/U Status Risk Notes Problem Type II diabetes ezio litus without complication (363404671) Type 2 diabetes mellitus without complications (E11.9) ActiveconfirmedProblemLong-term current use of insulin (199048025)prison (current) use of insulin (Z79.4)ActiveconfirmedProblemEssential hypertension (35979460)Essential (primary) hypertension (I10)Activeconfirmed Comment:BP just above goal range will increase hctz continue losartan,Description:Essential hypertension ProblemAnxiety (98801551)Anxiety (F41.9)Activeconfirmed Comment:Continue with current drug regimen as able Continue developing coping strategies as able If mood intensifies, call office for further evaluation or go to ER, ProblemGastroesophageal reflux disease (481736290)GERD (gastroesophageal reflux disease) (K21.9)Activeconfirmed Comment:Recent onset heartburn triggered by specific food. Take pepcid as needed. Avoid irritating foods., ProblemHyperlipidemia (19060191)Hyperlipidemia (E78.5)03/21/2006ctiveconfirmed ProblemFunctional bowel disease (56199605)Functional bowel disease (K58.9) 04/13/2009ctiveconfirmedDescription:Irritable bowel syndromeProblemOsteoporosis (04581982)OP (osteoporosis) (M81.0)03/21/2006ctiveconfirmed Description:OsteoporosisProblemAtrial fibrillation (69910296)Atrial fibrillation (I48.91)Activeconfirmed Comment:recently hospitalized d/t recurrence of a-fib. patient had been previously diagnosed years ago but then was not followed by cardiology or PCP for years. 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)ActiveconfirmedProblemHip pain (78045260)Hip pain (M25.559)InactiveconfirmedProblemTear film insufficiency (69008240)Dry eyes, bilateral (H04.123)InactiveconfirmedProblemDry skin (36689286)Dry skin (L85.3) InactiveconfirmedComment:encouraged to moisturise regularly to prevent itching, ProblemWeakness of both legs (598106399876389)Weakness of both legs (R29.898) InactiveconfirmedComment:Will order PT, HH, and Passport for strength training and gait training,ProblemNeck pain (60696305)Neck pain (M54.2)Inactiveconfirmed Comment:-advised OK to continue icing or using warm water treatment -having MRI of head done, ProblemHypocalcemia (0341406)Hypocalcemia (E83.51)Problem resolvedconfirmed ProblemVitiligo (69403648)Vitiligo (L80)Problem resolvedconfirmedProblem Paroxysmal supraventricular tachycardia (09416743)Paroxysmal supraventricular tachycardia (I47.1)06/10/2008Problem resolvedconfirmedProblemPerforation of tympanic membrane (62791919)Ear drum perforation (H72.90)Problem resolved confirmedComment:one large risk factor is nasal CPAP - will disallow from healing. likely causer for dizziness and hearing loss,Description:Perforation of tympanic membraneProblemRenal stone (65554081)Renal stone (N20.0)Problem resolvedconfirmedComment:currently asymptomatic. Keep appointment as scheduled with supervisor dental laboratory . stay well-hydrated. monitor blood sugar daily. any onset hematuria, fever, abdominal pain, N/V should seek evaluation.,Problem Hypoglycemia (656917421)Hypoglycemia (E16.2)Problem resolvedconfirmedProblem Diverticulitis of colon (308153925)Diverticulitis of colon (K57.32)03/21/2006 Problem resolvedconfirmedProblemConstipation (04491812)CN (constipation) (K59.00)06/10/2008Problem resolvedconfirmedDescription:ConstipationProblem History of malignant neoplasm of brain (502713914)History of brain tumor (Z87.898)Problem resolvedconfirmedProblemSevere acute respiratory syndrome coronavirus 2 detected (finding) (3880183031832261)COVID-19 virus detected (U07.1)Problem resolvedconfirmedComment:patient has improved since having infection. no current concerns. has completed self-isolation period.,Problem Blood chemistry abnormal (541150920)Elevated TSH (R79.89)Problem resolved confirmedComment:due to recheck TSH,ProblemHealed pyelonephritis (disorder) (991581841)History of pyelonephritis (Z87.448)Problem resolvedconfirmed Plan Of Treatment Pending Test Test Name Order Date Vitamin D, 25-Hydroxy (14913) 04/09/2019 Insurance Providers Payer Name Payer Address Payer Phone Subscriber Number Group Number Insured Name Patient Relationship to Insured Coverage Start Date Coverage End Date Medicare NGS PPS [address] [place], [place] [id number] Riley Joseph - patient is the [id number] 2001DMedicaid[address] [place], [place] [id number], GraceSelf - patient is the [id number] 2023Medicaid [address] [place], [place] [id number], GraceSángel - patient is the [id number] 2023 Medical (General) History Medical History History ICD Code Edema Allergic rhinitisAnxietySleep apneaArthritis, degenerativeAtrial fibrillation, CHADS-VASc score: 5,ConstipationCOVID-19 virus detectedDepressionDiverticulitis of colonElevated TSHIrritable bowel syndrome,History of brain tumor HyperlipidemiaHypertensionCarpal tunnel syndromeDiverticulosisGastroesophageal reflux diseaseHiatal herniaOsteoporosisMononeuritisParoxysmal supraventricular tachycardiaType II diabetes mellitusUterine CancerVitamin D deficiencyEar drum perforation (resolved 09/28/2022)undefinedRenal stone (resolved 09/28/2022) History of brain tumor (resolved 09/28/2022)COVID-19 virus detected (resolved 09/28/2022)Vitiligo (resolved 12/27/2022)undefinedDiverticulitis of colon (resolved 12/27/2022)CN (constipation) (resolved 12/27/2022)Neck pain (resolved 12/27/2022)History of pyelonephritis (resolved 12/27/2022)Elevated TSH (resolved 12/27/2022)Paroxysmal supraventricular tachycardia (resolved 03/06/2023) undefinedHypoglycemia (resolved 03/06/2023)Hypocalcemia (resolved 03/06/2023) Surgical History Surgery Date(Month/Year) Brain Surgery, COMMENTS: tumor removed a t age 58 Cataract Extraction - BilateralCholecystectomyColonoscopykidney stones crushed 1EXTENSIVE HYSTERECTOMYHospitalization History Reason Date(Month/Year) kidney stones 04/04/2021
--- OUTSIDE RECORDS SUMMARY | 2025-04-02 15:25 | XMS_ITS | Clinical Summary ---
Author Organization [facility] Address [address] [place] [address] Phone Care Team Providers Care Readiness Paraprofessional Name Role Phone Unavailable Primary Care Provider Unavailabl e Social History Tobacco UseTypesPacks/DayYears UsedDateSmoking Tobacco: Never Assessed CommentsUnknownSex and Gender InformationValueDate RecordedSex Assigned at Not on fileLegal IjtYbfxgq14/26/2022 5:42 AM ESTGender IdentityNot on fileSexual OrientationNot on file Plan of Treatment Not on file
--- OUTSIDE RECORDS SUMMARY | 2025-04-02 15:25 | XMS_ITS | Patient Health Record ---
Author Organization [facility] in [place] Address [address] [place] [address] Care Team Providers Care Information Resources Manager Name Role Phone Say ANGEL, Avis Primary Care Provider Un available Allergies Allergen (clinical drug ingredient) Drug/Non Drug Allergy documented on EMR Reaction Allergy Type Onset Date Status Substance with penicillin st ructure and antibacterial mechanism of action (substance) PENICILLINS (uncoded) Unknown Allergy ActiveSubstance with sulfonamide structure and antibacterial mechanism of action (substance)SULFA SULFONAMIDES (uncoded)UnknownAllergyActivemirtazapineRemeron UnknownDrug AllergyActive Reason For Referral No Information Medications Medication SIG (Take, Route, Frequency, Duration) Notes Start Date End Date Status Cartia XT 180 MG 1 capsule Orally Once a day; Du ration: 30 day(s) ActiveAtorvastatin Calcium 40 MG1 tablet Orally Once a day; Duration: 30 day(s) ActivehydroCHLOROthiazide 25 MG1 tablet in the morning Orally Once a day; Duration: 30 day(s)10/08/2018Not-TakingAspirin 81 81 MG1 tablet Orally Once a day; Duration: 30 day(s)ActiveEscitalopram Oxalate 5 MG1 tablet Orally Once a dayNot-TakingDonepezil HCl 10 MG1 tablet at bedtime Orally Once a dayNot-Taking Diltiazem CD 180 MG1 capsule Orally Once a kvwFlx-WzkijrCgnkmcb-Nggecbz D1 tablet BID Not-TakingSertraline HCl 25 MG1 tablet Orally Once a day; Duration: 30 day(s)ActiveLosartan Potassium-HCTZ 50-12.5 MG1 tablet Orally Once a dayActiveLevemir 100 unit/mL0 Subcutaneous 1X ActivePotassium Citrate 15 mEq1 Oral BID; Duration: 30 days11/23/2014Not-TakingPotassium Chloride Alexa ER 10 MEQ1 tablet with food Orally Once a day; Duration: 30 day(s)06/10/2019 Active Social History Tobacco Use: Social History Observation Description Date Details (start date - stop date) Never Smoker NA - NA Tobacco Use/Smoking Question Answer Notes Patient is a nonsmoker Problems Problem Type SNOMED Code ICD Code Onset Dates Problem Status W/U Status Risk Notes Problem Metabolic encephalopathy (82482595) 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) ActiveconfirmedProblemHypertension (02486681)HTN (hypertension) (I10)Active confirmedProblemDiabetes mellitus type 2 (disorder) (04740783)DM2 (diabetes mellitus, type 2) (E11.9)ActiveconfirmedProblemNephrolithiasis (56361379) Nephrolithiasis (N20.0)ActiveconfirmedProblemType II diabetes mellitus uncontrolled (864608614)Diabetes mellitus type II, uncontrolled (E11.65)Active confirmedProblemAtrial fibrillation (89049512)PAF (paroxysmal atrial fibrillation) (I48.0)ActiveconfirmedProblemUlcer of left foot (disorder) (690663399)Foot ulcer, left (L97.529)ActiveconfirmedProblemHyperphosphaturia (16668605)Hyperphosphaturia (E83.39)Activeconfirmed Plan Of Treatment Pending Test Test Name Order Date Ultrasound : Kidneys and Bladder 017 UA (URINALYSIS, COMPLETE) 07/25/2016 ALBUMIN, BLOOD 06/17/2015 BMP (BASIC MET PANEL - W/GFR) 06/17/2015 BMP (BASIC MET PANEL - W/GFR) 07/25/2016 STONE RISK SUPERSATURATION PROFILE, URIN E CALCULI 06/17/2015 UA 06/17/2015 Insurance Providers Payer Name Payer Address Payer Phone Subscriber Number Group Number Insured Name Patient Relationship to Insured Coverage Start Date Coverage End Date [place]IC[place] [address] [place] [address] [id number] Papo Josephelf - patient is the [id number] 2001[place]ICA[place] PRIMARY ONLY [address] OFFICE [place], [place] [id number] Papo Josephelf - patient is the [id number] 2013 Medical (General) History Medical History History ICD Code History of hyperlipidemia History of hypertensionSurgical History Surgery Date(Month/Year) cataract surgery, right History of total hysterectomy [id number] History of hysterectomyHospitalization History Reason Date(Month/Year) [facility] 07/2018
== END 2025-04-02 15:16 | disposition home or self-care (01) ==
PROVIDERS: PCP Family Medicine; Visit Provider Physician Assistant
DX: E11.621 Type 2 diabetes mellitus with foot ulcer (principal); L97.421 Non-pressure chronic ulcer of left heel and midfoot limited to breakdown of skin
CPT/HCPCS: 11043; G0463

== ENCOUNTER 2025-04-15 09:50 | Outpatient (OUT) | payer MEDICARE, MEDICAID, SELFPAY ==
--- OUTSIDE RECORDS SUMMARY | 2025-04-15 09:54 | XMS_ITS | Clinical Summary ---
Author Organization [facility] Address [address] [place] [address] Care Team Providers Care Rn Observation Name Role Phone Marilu Ocampo MD Primary Care Provider [phone] Allergies Active AllergyReactionsCriticalityNoted DateCommentsAtorvastatinUnknown 10/22/20228971MyaajirwcasBakivyw76/21/2023Penicillin MZwyvehg17/21/2023Sulfa OxsuornyfucXxxvmDdmi13/21/2023 bleeding Medications MedicationSigDispense QuantityRefillsLast FilledStart DateEnd DateStatus [...] 50 mg by mouth Daily05/01/2023ctive sodium chloride (Fani 128) 2 % ophthalmic solution 1 drop Daily as neededActive Qvqkda-Qsbkla-Syomtwrg-Zn Sulf (Clear Eyes Complete) solution Administer into affected eye(s) Daily as neededActive True Metrix Blood Glucose Test test strip use 1 TEST STRIP to TEST BLOOD SUGAR three times a day02/19/2023ctive Active Problems No known active problems Encounters DateTypeDepartmentCare AoloYrxuyoemgxs70/30/2025Telephone [facility] [address] [place] [address] Eleazar Hodges DPM No Show (Hx of No Shows)03/02/2025Travelfrom Last 3 Months Immunizations ImmunizationAdministration DatesNext DueInfluenza Whole05/16/2011Influenza, High Dose Seasonal, Preservative Free02/14/2018,03/07/2017,03/08/2016,03/15/2015 Influenza, High-dose Seasonal, Quadrivalent, Preservative Free02/08/2022, 02/18/2020Influenza, Seasonal, Quadrivalent, Vrjzvcqpbw42/06/2021Influenza, seasonal, /24/2014,03/23/2010Influenza, trivalent, adjuvanted 03/05/2019Pneumococcal Polysaccharide WERP764006/11/20103984Hkht33/27/2016 Family History Medical HistoryRelationNameCommentsHeart diseaseFatherHypertensionFather HyperlipidemiaMotherHypertensionMotherMelanomaNeg HxRelationNameStatusComments FatherDeceasedMotherDeceased Social History Tobacco UseTypesPacks/DayYears UsedDateSmoking Tobacco: NeverSmokeless Tobacco: Never Tobacco Cessation:Counseling Given: Not Answered Alcohol UseStandard Drinks/WeekCommentsNot Currently0 (1 standard drink = 0.6 oz pure alcohol)CommentsUnknownSex and Gender InformationValueDate Recorded Sex Assigned at BirthNot on fileLegal JaiQsgryr09/15/2023 8:27 PM EDTGender IdentityNot on fileSexual OrientationNot on file Last Filed Vital Signs Vital SignReadingTime TakenCommentsBlood Hwiokgvx260/8107 12:00 PM EDT Pulse--Temperature--Respiratory Rate--Oxygen Saturation--Inhaled Oxygen Concentration--Mfhwoy93.7 kg (197 lb 12.8 oz)05/12/2024 10:11 AM GXTCxrsff680.5 cm (5' 2 )05/12/2024 10:11 AM ESTBody Mass Index36.18107/13/2023 10:11 AM EST Plan of Treatment Not on file Insurance Care Teams Team MemberRelationshipSpecialtyStart DateEnd Date Marilu Ocampo MD [address] [facility] [place] [address] [facility]
--- OUTSIDE RECORDS SUMMARY | 2025-04-15 09:54 | XMS_ITS | Clinical Summary ---
Demographics Address [address] [place] [address] Home Phone Preferred Language Unknown Marital Status Unknown Voodoo Affiliation Unknown Race Unknown Ethnic Group Unknown Author Organization [facility] Address [address] [place] [address], [address] [place] [address] Care Team Providers Care Print Traffic Manager Name Role Phone Unavailable Primary Care Provider Unavailabl e Social History Tobacco UseTypesPacks/DayYears UsedDateSmoking Tobacco: Never Assessed CommentsUnknownSex and Gender InformationValueDate RecordedSex Assigned at Not on fileLegal TzpHcpsdi91/10/2013 6:45 PM ESTGender IdentityNot on fileSexual OrientationNot on file Plan of Treatment Not on file
--- OUTSIDE RECORDS SUMMARY | 2025-04-15 09:54 | XMS_ITS | Clinical Summary ---
Author Organization [facility] Address [address] [place] [address] Phone Care Team Providers Care Collar Setter Name Role Phone Unavailable Primary Care Provider Unavailabl e Social History Tobacco UseTypesPacks/DayYears UsedDateSmoking Tobacco: Never Assessed CommentsUnknownSex and Gender InformationValueDate RecordedSex Assigned at Not on fileLegal SebDdqtvi60/26/2022 5:42 AM ESTGender IdentityNot on fileSexual OrientationNot on file Plan of Treatment Not on file
--- OUTSIDE RECORDS SUMMARY | 2025-04-15 09:55 | XMS_ITS | Clinical Summary ---
[facility] Organization [facility] Address [id number] [place] [address] Care Team Providers Care Tile Burner Name Role Phone Marilu Ocampo MD Primary Care Provider [phone] Allergies Active AllergyReactionsCriticalityNoted JcawPmvemtotSjjsxzdrugbjTmzhqy50/01/2017 MrkrqfgjgzgCnqpr92/01/4131TnlqwiesxeiPwloel37/01/2017Sulfa (Sulfonamide Antibiotics)wqlctlfpJmrj01/01/2017 Medications MedicationSigDispense QuantityRefillsLast FilledStart DateEnd DateStatus acetaminophen (TYLENOL ARTHRITIS) 650 mg 8 hr tablet TAKE 1 TABLET BY MOUTH ONCE DAILY NEEDED *NEW PRESCRIPTION REQUEST* 90 tablet 1005Active Additional Information Patient taking differently: 650 mg oral As needed, pain, Reported on 03/02/2025 apixaban (ELIQUIS) 5 mg tablet Indications:Paroxysmal atrial fibrillation ([facility])TAKE 1 TABLET BY MOUTH EVERY MORNING AND 1 BEFORE BEDTIME 60 tablet 5Active acarbose (PRECOSE) 50 mg tablet Indications:Type 2 diabetes mellitus without complication, with long-term current use of insulin ([facility])TAKE 1 TABLET(50 MG) BY MOUTH IN THE MORNING AND AT BEDTIME 60 tablet 5Active Additional Information Patient taking differently:50 mg oral2 times daily, TAKE 1 TABLET(50 MG) BY MOUTH IN THE MORNING AND AT BEDTIME, Reported on 03/02/2025 lancets misc Test once daily each morning. (dispense preferred device and supplies) 100 each 5Active losartan (COZAAR) 50 mg tablet Indications:Essential hypertensionTake 1 tablet (50 mg total) by mouth in the morning. 28 tablet 5Active metoprolol succinate XL (TOPROL XL) 25 mg 24 hr tablet Indications:Essential hypertension,Paroxysmal atrial fibrillation ([facility]), Diastolic dysfunction,Nonrheumatic mitral valve regurgitationTake 1 tablet (25 mg total) by mouth in the morning. 28 tablet 5Active insulin glargine,hum.rec.anlog (BASAGLAR KWIKPEN U-100 INSULIN) 100 unit/mL (3 mL) insulin pen Indications:Type 2 diabetes mellitus without complication, with long-term current use of insulin ([facility])INJECT 25 UNITS SUBCUTANEOUSLY EVERY MORNING AND 20 UNITS EVERY EVENING 15 mL 1005Active Additional Information Patient taking differently: 25 Units subcutaneous 2 times daily, INJECT 25 UNITS SUBCUTANEOUSLY EVERY MORNING AND 20 UNITS EVERY EVENING, Reported on 03/02/2025 blood sugar diagnostic (TRUE METRIX GLUCOSE TEST STRIP) strip Indications:Type 2 diabetes mellitus without complication, with long-term current use of insulin ([facility])USE TO TEST BLOOD SUGARS TWICE DAILY *NEW PRESCRIPTION REQUEST* 100 strip 1005Active calcium carbonate-vitamin D3 (OYSTER SHELL CALCIUM-VIT D3) 500 mg (1,250 mg) - 200 units per tablet Indications:Age-related osteoporosis without current pathological fractureTAKE (1) TABLET EVERY MORNING AND EVENING WITH MEALS 56 tablet 5Active Additional Information Patient taking differently: 1 tablet oral 2 times daily with meals, Morning, Evening, Reported on 03/02/2025 atorvastatin (LIPITOR) 40 mg tablet Indications:History of hyperlipidemiaTAKE 1 TABLET EVERY AFTERNOON 28 tablet 3095Active Additional Information Patient taking differently:40 mg oralDaily, Noon, Reported on 03/02/2025 cholecalciferol 1,000 units tablet Take 1 tablet (1,000 Units total) by mouth in the morning.5Active multivitamin with folic acid (TAB-A-REAGAN) 400 mcg tablet Take 1 tablet by mouth at noon. 90 tablet 5Active Active Problems ProblemNoted DateDiagnosed DateDiabetic ulcer of left midfoot associated with type 2 diabetes mellitus, with muscle involvement without evidence of necrosis 03/03/2025Type 2 diabetes mellitus with pressure vqsnzp5503/03/2025ltered mental status, unspecified altered mental status type03/01/2025holedocholithiasis 08/04/2024Renal mass, left08/04/2024 Overview (11/04/2024): 11/04/2024. She has a left enhancing renal mass. Explained to her and her family that about 2/3 of these represent an underlying carcinoma and 1/3 do not. We also talked about the natural history of carcinomas of the kidney should it represent this. They typically grow around 0.5 cm per year. Hers appears to have been growing even slower than this in hindsight when reviewing the films from 2020. He was typically will not spread until over about 4 cm. Options include continuing observation without further pathologic diagnosis versus percutaneous biopsy and if representing a tumor can consider either partial nephrectomy or percutaneous ablation which I would favor given her age and comorbidities. She was going to consider and let me know how she would like to proceed. For now plan repeat u/s 6 months Dementia without behavioral disturbance, psychotic disturbance, mood disturbance, or anxiety, unspecified dementia severity, unspecified dementia type06/19/2024Type II diabetes mellitus with neurological manifestations 5Abnormal gait04/28/2024Need for assistance with personal care 04/28/2024ge-related osteoporosis without current pathological fracture 4Diastolic lxuxcchqwwx08/26/2023Mitral valve tmeduucksfdwz60/26/2023 Tricuspid valve nogcvwyuupcsl50/26/2023arotid lxcsssjveqdbtzk45/26/2023Right lower quadrant abdominal pain02/18/2021Other xlmqfwcjtmhlji45/17/2021 Mdhdpqmuxuqomf25/17/2021Type 2 diabetes mellitus without complication, with long-term current use of tegcaki9502/18/2021Kidney dfghtd4612/15/2020 Overview (11/01/2021): 12/15/20: Recent gross hematuria. Non contrast CT showed 1-2 nonobstructing stones in right renal pelvis totaling approximately 7 mm in size. C&S pending. Urine was positive for Trichomonas. Denies any flank pain. No further hematuria. It may be that the stone was the reason for the hematuria. Discussed treatment options for the stone, however she is still recovering from a rib fracture and would like to heal up more before doing anything surgical. At the very least she will need cystoscopy for further evaluation. 12/16/20: Urine culture came back contaminated 01/18/21: History of gross hematuria with right renal pelvic stone. Given the location of the stone and the size I told her we should consider treatment as it is unlikely this is going to pass and it is in the renal pelvis which gives at much higher incidence of passage into the ureter which will cause her renal colic. Options discussed with ESWL and ureteroscopy. Plan for ureteroscopy with laser lithotripsy and possible stent 02/15/21: Right ureteroscopy laser lithotripsy, no stent 04/20/21: Flank pain following procedure. Brief admission for hydronephrosis. UA today is negative.Will check renal US. If neg, see her back in 6 months 11/01/21: No gross hematuria. Stones resolved on kub 06/25. followup prn Assessment & Plan (12/15/2020 1:46 PM EDT): We will see her back in 1 month or sooner if any problems. Continue to watch for the final results of her urine culture. Of note, she is scheduled to see gynecology as well. Gross gmbgnkgam30/14/2021Multiple closed fractures of ribs of left side 11/15/2020evere obesity (BMI 35.0-39.9) with gcymqlqnabi25/24/2021History of ywfuimwwoptjvn58/04/2021ssential oultprlqqspo15/04/2021aroxysmal atrial zpxbiytfofuu19/04/2021hest pain06/19/20201051Syswqfdtauov71/03/2019 Resolved Problems ProblemNoted DateDiagnosed DateResolved DateObesity (BMI 30-39.9)08/05/2020 08/25/2020 Encounters DateTypeDepartmentCare UzbcNczhlhqnuot09/06/2025Refill Ghada Banuelos [facility] - Medical Oncology [address] [place] [phone] Marilu Ocampo MD 03/02/2025Telephone [facility] [address] [place] [address] [place] [address] Marian Cochran CMA 02/28/2025 10:40 PM EDT - 03/03/2025 4:07 PM EDTHospital Encounter [facility] [address] [place] [address] Eleazar Pierre MD Muhammad, MD Terrence Rapp Muhamid M, MD Altered mental status, unspecified altered mental status type (Primary Dx) Discharge Disposition: [facility] Facility-Medicare Cert02/28/2025Travel 02/10/2025Refill [facility] [address] [place] [address] [place] [phone] Arvin Moreno, DO Age-related osteoporosis without current pathological fracture; History of tnyehgoydpbopb09/09/2025Refill [facility] - Medical Oncology [address] [place] [phone] Marilu Ocampo MD 02/04/2025 9:00 AM EDTOffice Visit [facility] [address] [place] [phone] Arvin Moreno, Callus of foot (Primary Dx); Open wound of left foot, initial keskglyyu83/02/2025Travelfrom Last 3 Months Immunizations ImmunizationAdministration DatesNext DueInfluenza High Dose Preservative Free IM 02/14/2018,03/07/2017,03/08/2016,03/15/2015Influenza Vaccine, Quadrivalent, Xvoqixuvcl42/06/2021Influenza Whole05/16/2011Influenza, High-dose, Quadrivalent 02/08/2022,02/18/2020Influenza, Im Trivalent Dnphgjftless02/24/2014,03/23/2010 Influenza, Trivalent, Pkgtpqwjzu27/02/2019Pneumococcal Dmtixvnzlvrvdg71/08/2011 Tdap1 Family History Medical HistoryRelationNameCommentsDiabetesMotherBreast cancerNieceBreast cancer SisterCancerSonRelationNameStatusCommentsBrotherDeceasedFatherDeceasedMaternal GrandfatherDeceasedMaternal GrandmotherDeceasedMotherDeceasedNieceAlivePaternal GrandfatherDeceasedPaternal GrandmotherDeceasedSisterDeceasedSonDeceased Social History Tobacco UseTypesPacks/DayYears UsedDateSmoking Tobacco: NeverSmokeless Tobacco: NeverAlcohol UseStandard Drinks/WeekCommentsNever0 (1 standard drink = 0.6 oz pure alcohol)[facility] UtilitiesAnswerDate RecordedIn the past 12 months has the electric, gas, oil, or water company threatened to shut off services in your home?No5AUDIT-CAnswerDate RecordedFrequency of Alcohol ConsumptionNever 03/04/2019Average Number of DrinksNot on file03/04/2019Frequency of Binge DrinkingNot on file03/04/2019PHQ-2AnswerDate RecordedTotal Mjbgj886 PRAPARE - TransportationAnswerDate RecordedIn the past 12 months, has lack of transportation kept you from medical appointments or from getting medications?No 03/02/2025In the past 12 months, has lack of transportation kept you from meetings, work, or from getting things needed for daily living?No03/02/2025 Housing InstabilityAnswerDate RecordedAre you worried or concerned that in the next two months you may not have stable housing that you own, rent or stay in as a part of a household?No5ChildcareAnswerDate RecordedChildcareUnknown 11/13/2018EmploymentAnswerDate WexocweaDnkfqjzztvBcbzqdn58/12/2019Hunger ScreeningAnswerDate RecordedWithin the past 12 months we worried whether our food would run out before we got money to buy more.Never True03/02/2025Within the past 12 months the food we bought just didn't last and we didn't have money to get more.Never True03/02/2025Purpose - LifeAnswerDate RecordedPurpose and direction in mxzrPfjxusv15/15/2021CommentsNoSex and Gender Information ValueDate RecordedSex Assigned at BirthNot on fileLegal ZigHkjfbw61/06/2015 11:21 AM EDTGender IdentityNot on fileSexual OrientationNot on file Last Filed Vital Signs Vital SignReadingTime TakenCommentsBlood Dktapxaj989/5509 11:57 AM EDT Vheot436203/03/2025 11:57 AM VVJXzyqfvrhhmd06.6 ??C (97.8 ??F)03/03/2025 11:57 AM EDTRespiratory Face530803/03/2025 11:57 AM EDTOxygen Dmyxhykkfz20%03/03/2025 11:57 AM EDTInhaled Oxygen Concentration--Jnsiem79.3 kg (163 lb 14.4 oz)03/03/2025 4:37 AM RKRWkcbcx819.5 cm (5' 2 )03/01/2025 2:31 AM EDTBody Mass Index29.98 03/01/2025 2:31 AM EDT Plan of Treatment DateTypeDepartmentCare Team (Latest Contact Info)Yfkwsrctfug06/16/2025 12:45 PM ESTOffice Visit [facility] [address] [place] [address] [address] [facility] [place] [address] Eleazar Iglesias MD [address] [place] [address] Health MaintenanceDue DateLast DoneCommentsMedicare Annual Wellness Visit 1935Zoster (Shingles) Vaccine (1 of 2)08/29/1985RSV ( or age 60+ yrs) (1 - 1-dose 75+ series)08/29/2010Fall Risk Fexykpflv58/ Influenza Zloyhiu52/09/2023, 02/08/2022, 03/09/2021, Additional history existsDepression Zwdyotzcr43/08/2024Tobacco Screening /DTaP,Tdap and Td Vaccines (2 - Td or Tdap)03/30/2026 03/30/2016 Goals GoalPatient Goal TypeAssociated ProblemsRecent ProgressPatient-Stated?Author SNF per Gely Lockhart LSW Note: Evaluation of progress towards goal: need to speak with pt when alert to discuss DC plan &/or speak with pt HCPOA Medical Devices ImplantedTypeAreaManufacturerDevice IdentifierShelf Expiration DateModel / Serial / LotLens Iol Ultrasert 24.0d - [id number] 24.0 - [id number] Implanted:Qty: 1 on 03/04/2019 by Nina Wheeler MD at [facility]: [id number] 24.0 / [id number] 24.0 / [id number] Procedures Procedure NamePriorityDate/TimeAssociated DiagnosisCommentsBEDSIDE GLUCOSE Uyhaldm8803/03/2025 12:22 PM EDT BEDSIDE UIFIZUROtsinwb82/30/2025 11:59 AM EDT BEDSIDE EZZRCFCFydmxfw62/30/2025 8:22 AM EDT EXTRA TUBES BLUE LBGOlysbju73/30/2025 5:18 AM EDT EXTRA LIOTGGdvlblm27/30/2025 5:18 AM EDT CBC WITH AUTO JZOMQHAXDDRYDcbcrip83/30/2025 5:17 AM EDT TUCQUGLWREhegpbo72/30/2025 5:17 AM EDT COMPREHENSIVE METABOLIC TYUNJKsbgkuf96/30/2025 5:17 AM EDT BEDSIDE MFUGVBQAubgzex87/29/2025 7:59 PM EDT UFVLDVDHKEcyacxh65/29/2025 5:46 PM EDT DFNXGIQTDQougfyj99/29/2025 5:46 PM EDT BEDSIDE GQXDLWOYcqnfvg58/29/2025 4:49 PM EDT THIAMIN (VITAMIN B1), GXZvdvlol42/29/2025 12:59 PM EDT BEDSIDE CCGDYJFUujaoef82/29/2025 11:35 AM EDT EXTRA TUBES BLUE JIYArbfbpn93/29/2025 5:11 AM EDT VITAMIN D 25 HYDROXYAdd-On03/02/2025 5:11 AM EDT VITAMIN N95Ufe-Bt25/29/2025 5:11 AM EDT EXTRA VDOOPXpzcooj60/29/2025 5:11 AM EDT CBC WITH AUTO VUTWJNIVYGSXCfrcxuv39/29/2025 5:11 AM EDT KUBIMFQJZNojlihn38/29/2025 5:11 AM EDT COMPREHENSIVE METABOLIC ZIXUFQcfpmwg41/29/2025 5:11 AM EDT BEDSIDE UVGJMGQGvtdgli01/29/2025 12:46 AM EDT BEDSIDE DXBWTAGXeokaqg78/28/2025 9:04 PM EDT BEDSIDE VJYVSDXVhrlpqo14/28/2025 4:16 PM EDT EXTRA TUBES SST IGPOeljobi95/28/2025 12:06 PM EDT EXTRA PLHTLJllihqx44/28/2025 12:06 PM EDT YNNXKNXQboqnwk00/28/2025 12:06 PM EDT BEDSIDE JAOFAZQHmbpgrd12/28/2025 11:13 AM EDT BEDSIDE IXQZNCZWsdozmc12/28/2025 4:23 AM EDT BEDSIDE EJKIFIHKitehup01/28/2025 1:20 AM EDT TROP I, HIGH SENSITIVITY 1 MVWDSSVA02/28/2025 12:06 AM EDT XR CHEST 1 YDTBDF8103/01/2025 12:[address] BRAIN WO VXOTBQKZ08/28/2025 12:06 AM EDT ECG 12-KMCBBLYQ67/27/2025 11:03 PM EDT EXTRA TUBES BLUE GSDPuprezx90/27/2025 11:03 PM EDT EXTRA YDRLCRqhlhxr21/27/2025 11:03 PM EDT HEMOGLOBIN G6KQeu-Pt89/27/2025 10:59 PM EDT TROPONIN I, HIGH SENSITIVITY 0 MZOCEPLX15/27/2025 10:59 PM EDT TROPONIN I, HIGH SENSITIVITY 0 NJWPBFXO97/27/2025 10:59 PM EDT MMBHOOBXAVEQM13/27/2025 10:59 PM EDT COMPREHENSIVE METABOLIC RMNKOTWVB98/27/2025 10:59 PM EDT CBC WITH AUTO QPLLFKXNPQVNRLFY79/27/2025 10:59 PM EDT POCT NURSING URINE MACROSCOPIC SLJhgaljj19/27/2025 10:56 PM EDT ER EXTRA URINE TKWTXSDNNL55/27/2025 10:54 PM EDT ER EXTRA JPBDTASAZ42/27/2025 10:54 PM EDT URINE KZWSJUZMGBD64/27/2025 10:54 PM EDT from Last 3 Months Results * (ABNORMAL) Bedside Glucose *Place/Obtain serum glucose if >500 per glucometer. (03/03/2025 12:22PM EDT) Only the most recent of12 resultswithin the time period is included. ComponentValueRef RangeTest MethodAnalysis TimePerformed AtPathologist Signature Bedside Glucose (POC)388(H)65 - 99 mg/dL03/03/2025 12:27 PM [facility] (Source)Anatomical Location / LateralityCollection Method / VolumeCollection TimeReceived Timearterial/patvfsjht50/30/2025 12:22 PM EDT03/03/2025 12:27 PM EDT Narrative Authorizing ProviderResult TypeResult StatusMuhamid M Terrence MDPOINT OF CARE TEST ORDERABLESFinal ResultPerforming OrganizationAddressCity/State/ZIP CodePhone Number [address] [address], [place] * Light Blue Top (03/03/2025 5:18 AM EDT) Only the most recent of3 resultswithin the time period is included. ComponentValueRef RangeTest MethodAnalysis TimePerformed AtPathologist Signature Extra TubeAuto Ndhmylov06/30/2025 7:01 AM [facility] Specimen (Source)Anatomical Location / LateralityCollection Method / Volume Collection TimeReceived TimeBloodVenous blood / Daadnko3503/03/2025 5:18 AM EDT 03/03/2025 5:41 AM EDT Narrative Authorizing ProviderResult TypeResult StatusMuhamid M Terrence MDLAB BLOOD ORDERABLESFinal ResultPerforming OrganizationAddressCity/State/ZIP CodePhone Number [address] [address], [place] * (ABNORMAL) CBC auto differential (03/03/2025 5:17 AM EDT) Only the most recent of3 resultswithin the time period is included. ComponentValueRef RangeTest MethodAnalysis TimePerformed AtPathologist Signature WBC8.54 - 11 x10E9/L03/03/2025 5:47 AM EDTPKETTERING HEALTH PREBLERBC Count4.463.8 - 5.2 X10E12/L03/03/2025 5:47 AM EDTPKETTERING HEALTH PREBLEHemoglobin13.811.7 - 15.5 g/dL03/03/2025 5:47 AM EDTPKETTERING HEALTH PREBLEHematocrit39.935 - 47 %03/03/2025 5:47 AM EDTPKETTERING HEALTH PREBLEMCV9080 - 100 fL03/03/2025 5:47 AM EDTPKETTERING HEALTH PREBLEMCH30.927 - 34 pg03/03/2025 5:47 AM EDTPKETTERING HEALTH PREBLEMCHC34.532 - 36 g/dL03/03/2025 5:47 AM EDTPKETTERING HEALTH PREBLERDW13.611.5 - 15 %03/03/2025 5:47 AM EDTPKETTERING HEALTH PREBLEPlatelet Fsxwg528241 - 450 X10E9/L03/03/2025 5:47 AM EDT [facility]MPV8.57 - 12 fL03/03/2025 5:47 AM EDT [facility] WESTNeutrophils %49.9%03/03/2025 5:47 AM EDT [facility] WESTLymphocytes %33.6%03/03/2025 5:47 AM EDT [facility]ITALMonocytes %9.0%03/03/2025 5:47 AM EDT [facility] HOSPITALEosinophils %6.9%03/03/2025 5:47 AM EDT [facility]Basophils %0.6%03/03/2025 5:47 AM EDT [facility] WESTNeutrophils Absolute (A)4.31.5 - 6.6 10*3/uL 03/03/2025 5:47 AM EDTPKETTERING HEALTH PREBLELymphocytes Absolute2.9 1.0 - 3.5 10*3/uL03/03/2025 5:47 AM [facility] Monocytes Absolute0.80.0 - 0.9 10*3/uL03/03/2025 5:47 AM [facility]ITALEosinophils Absolute0.6(H)0.0 - 0.4 10*3/uL03/03/2025 5:47 AM [facility]ITALBasophils Absolute0.00.0 - 0.2 10*3/uL 03/03/2025 5:47 AM [facility]ITALDifferential Type AUTOMATED JZMPRXCTTWSO36/30/2025 5:47 AM [facility] Specimen (Source)Anatomical Location / LateralityCollection Method / Volume Collection TimeReceived TimeBloodVenous blood / UnknownVenipuncture / Unknown 03/03/2025 5:17 AM EDT03/03/2025 5:40 AM EDT Narrative Authorizing ProviderResult TypeResult StatusStephanie L Veselka TERADATA SOLUTION ARCHITECT-CNPLAB BLOOD ORDERABLESFinal ResultPerforming OrganizationAddressCity/State/ZIP Code Phone Number [address] [place] [address], [place] * Magnesium (03/03/2025 5:17 AM EDT) Only the most recent of4 resultswithin the time period is included. ComponentValueRef RangeTest MethodAnalysis TimePerformed AtPathologist Signature MAGNESIUM1.91.8 - 2.6 mg/dL03/03/2025 6:14 AM [facility]pecimen (Source)Anatomical Location / LateralityCollection Method / VolumeCollection TimeReceived TimeBloodVenous blood / UnknownVenipuncture / Fotofrb9203/03/2025 5:17 AM EDT03/03/2025 5:40 AM EDT Narrative Authorizing ProviderResult TypeResult StatusStephanie L Veselka TERADATA SOLUTION ARCHITECT-CNPLAB BLOOD ORDERABLESFinal ResultPerforming OrganizationAddressCity/State/ZIP Code Phone Number [facility] [address] [place] [address] [place] [address], [place] * (ABNORMAL) Comprehensive metabolic panel (03/03/2025 5:17 AM EDT) Only the most recent of3 resultswithin the time period is included. ComponentValueRef RangeTest MethodAnalysis TimePerformed AtPathologist Signature DIDWAH348697 - 146 mmol/L03/03/2025 6:14 AM [facility]OSPITALPOTASSIUM3.53.5 - 5.0 mmol/L03/03/2025 6:14 AM [facility]OSPITALCHLORIDE10398 - 109 mmol/L03/03/2025 6:14 AM EDMARION [facility]OSPITALCARBON XPDOAWN7115 - 32 mmol/L03/03/2025 6:14 AM EDT [facility] WESTANION GAP85 - 15 mmol/L03/03/2025 6:14 AM EDT [facility] WESTBLOOD UREA HABCNMXZ825 - 27 mg/dL03/03/2025 6:14 AM [facility]OSPITALCREATININE0.630.40 - 1.00 mg/dL 03/03/2025 6:14 AM [facility]OSPITALComment:METHOD TRACEABLE TO IDMS JMHCLFDHDALKWUW781(H)65 - 99 mg/dL03/03/2025 6:14 AM EDT [facility] WESTCALCIUM8.4(L)8.5 - 10.5 mg/dL03/03/2025 6:14 AM [facility]OSPITALTOTAL PROTEIN5.7(L)6.0 - 8.0 g/dL 03/03/2025 6:14 AM [facility]OSPITALALBUMIN3.33.2 - 5.3 g/dL03/03/2025 6:14 AM [facility]OSPITALALKALINE KVCVFOLFLTP3028 - 130 U/L03/03/2025 6:14 AM [facility]OS[facility]ITALAST17<=41 U/L03/03/2025 6:14 AM [facility] ALT18<=31 U/L03/03/2025 6:14 AM [facility] BILIRUBIN,TOTAL1.4(H)0.3 - 1.2 mg/dL03/03/2025 6:14 AM EDMARION HOSPITALEGFR Non-Race Hjkyrhgek47>=60 ml/min/1.73sq.m003/03/2025 6:14 AM [facility]ITALComment: eGFR not reported due to non-numeric value for Creatinine. Reported eGFR is based on the CKD-EPI 2020 equation that does not use a race coefficient. Specimen (Source)Anatomical Location / LateralityCollection Method / Volume Collection TimeReceived TimeBloodVenous blood / UnknownVenipuncture / Unknown 03/03/2025 5:17 AM EDT03/03/2025 5:40 AM EDT Narrative Authorizing ProviderResult TypeResult StatusStepmu Gonzalez APRN-[facility]OSPITALLAB BLOOD ORDERABLESFinal ResultPerforming OrganizationAddressCity/State/[facility] Code Phone Number [address] [place] [address], * Potassium (03/02/2025 5:46 PM EDT)ComponentValueRef RangeTest MethodAnalysis TimePerformed AtPathologist SignaturePOTASSIUM3.73.5 - 5.0 mmol/L03/02/2025 6:03 PM EDTPCITY HOSPITALpecimen (Source)Anatomical Location / LateralityCollection Method / VolumeCollection TimeReceived Time BloodVenous blood / UnknownVenipuncture / Dvhajfw4803/02/2025 5:46 PM EDT 03/02/2025 5:48 PM EDT Narrative Authorizing ProviderResult TypeResult StatusMuhamid M Terrence MDLAB BLOOD ORDERABLESFinal ResultPerforming OrganizationAddIndiana Regional Medical Center/[facility] HospitalPhone Number [address] [address], * Thiamin (Vitamin B1), WB (03/02/2025 12:59 PM EDT)ComponentValueRef RangeTest MethodAnalysis TimePerformed AtPathologist SignatureTHIAMIN (VITAMIN B1), [place] [address] - 180 nmol/L1 4:25 PM EDTMAYO CLINIC LABORATORIESComment: ADDITIONAL INFORMATION This test was developed and its performance characteristics determined by [facility] in a manner consistent with CLIA requirements. This test has not been cleared or approved by the U.S. Food and Drug Administration. Test Performed by: [facility] [address] [place] [address] Nuclear Medical Tech: Thai Barroso Ph.D.; CLIA# [id number] Specimen (Source)Anatomical Location / LateralityCollection Method / Volume Collection TimeReceived TimeBloodVenous blood / UnknownVenipuncture / Unknown 03/02/2025 12:59 PM EDT03/02/2025 1:07 PM EDT Narrative Authorizing ProviderResult TypeResult StatusTaeler Hank COLLINS-CNPLAB BLOOD ORDERABLESFinal ResultPerforming OrganizationAddressCity/State/ZIP CodePhone Number [facility] [address] [place] [address], * (ABNORMAL) Vitamin D 25 hydroxy (03/02/2025 5:11 AM EDT)ComponentValueRef RangeTest MethodAnalysis TimePerformed AtPathologist SignatureVITAMIN D 25 HYD TOT19.6(L)30.0 - 100.0 ng/mL03/02/2025 10:42 PM [facility] LABORATORYSpecimen (Source)Anatomical Location / LateralityCollection Method / VolumeCollection TimeReceived TimeBloodVenous blood / UnknownVenipuncture / Wwqyjyg2403/02/2025 5:11 AM EDT03/02/2025 5:48 AM EDT Narrative [facility] - 03/02/2025 10:42 PM EDT Vitamin D status 25 [place] Vitamin D Deficiency <20 ng/mL Insufficiency ? 20-29 ng/mL Sufficiency ? 30-100 ng/mL Toxicity >100 ng/mL NOTE: A pediatric reference range has not been established by the lead pressman roto gravure printing of this kit. The [place] [employer] recommends a Vitamin D level of = or >20ng/mL in infants and children. Authorizing ProviderResult TypeResult StatusTaeler Hank [facility] BLOOD ORDERABLESFinal ResultPerforming OrganizationAddressCity/State/ZIP CodePhone Number [facility] [address] [place] [address], * Vitamin B12 (03/02/2025 5:11 AM EDT)ComponentValueRef RangeTest MethodAnalysis TimePerformed AtPathologist SignatureVITAMIN [id number] - 914 pg/mL03/02/2025 10:39 PM EDVETERANS HEALTH ADMINISTRATION LABORATORYSpecimen (Source)Anatomical Location / LateralityCollection Method / VolumeCollection TimeReceived Time BloodVenous blood / UnknownVenipuncture / Inbgazb2303/02/2025 5:11 AM EDT 03/02/2025 5:48 AM EDT Narrative Authorizing ProviderResult TypeResult StatusTaeler Hank [facility] BLOOD ORDERABLESFinal ResultPerforming OrganizationAddressCity/State/ZIP CodePhone Number [facility] [address] [place] [address], * SST TOP (03/01/2025 12:06 PM EDT)ComponentValueRef RangeTest MethodAnalysis TimePerformed AtPathologist SignatureExtra TubeAuto Njniylqr57/28/2025 2:01 PM EDTPROMEDSOUTHERN INYO HOSPITALpecimen (Source)Anatomical Location / LateralityCollection Method / VolumeCollection TimeReceived TimeBloodVenous blood / Cxjmtdi1703/01/2025 12:06 PM EDT03/01/2025 12:09 PM EDT Narrative Authorizing ProviderResult TypeResult StatusRustefan Sapp [facility] BLOOD ORDERABLESFinal ResultPerforming OrganizationAddressCity/State/ZIP CodePhone Number [facility] [address] [place] [address], [place] * Ammonia (03/01/2025 12:06 PM EDT)ComponentValueRef RangeTest MethodAnalysis TimePerformed AtPathologist TeqlnzvjeKUOTHRZ3089 - 35 umol/L03/01/2025 12:30 PM EDMCCULLOUGH-HYDE MEMORIAL HOSPITALpecimen (Source)Anatomical Location / LateralityCollection Method / VolumeCollection TimeReceived TimeBloodVenous blood / UnknownVenipuncture / Hdormxh7403/01/2025 12:06 PM EDT03/01/2025 12:08 PM EDT Narrative Authorizing ProviderResult TypeResult StatusKyle Enrique Leiva TERADATA [facility] ARCHITECT-CNPLAB BLOOD ORDERABLESFinal ResultPerforming OrganizationAddressCity/State/ZIP CodePhone Number [address] [place] [address], [place] * Troponin I, High Sensitivity 1 Hour (03/01/2025 12:06 AM EDT)ComponentValueRef RangeTest MethodAnalysis TimePerformed AtPathologist SignatureTROPONIN I, HIGH SENSITIVITY3<16 ng/L03/01/2025 1:23 AM [facility] Specimen (Source)Anatomical Location / LateralityCollection Method / Volume Collection TimeReceived TimeBloodVenous blood / UnknownVenipuncture / Unknown 03/01/2025 12:06 AM EDT03/01/2025 12:26 AM EDT Narrative Authorizing ProviderResult TypeResult StatusStevgina Pierre MDLAB BLOOD ORDERABLES Final ResultPerforming OrganizationAddressty/State/ZIP CodePhone Number [address] [place] [address], [place] * X-ray chest 1 view (03/01/2025 12:06 AM EDT)Anatomical RegionLaterality ModalityBody, ChestN/AComputed RadiographySpecimen (Source)Anatomical Location / LateralityCollection Method / VolumeCollection TimeReceived Time03/01/2025 12:51 AM EDT Narrative 03/01/2025 12:52 AM EDT Single view chest History: Difficulty breathing, shortness of breath Comparison: Impression: No acute pulmonary process. ??No pneumothorax or pleural effusion. Nonenlarged heart. Finalized by Jeromy Pal MD on 03/01/2025 12:52 AM Procedure Note Jeromy Pal MD - 03/01/2025 Single view chest History: Difficulty breathing, shortness of breath Comparison: Impression: No acute pulmonary process. No pneumothorax or pleural effusion. Nonenlarged heart. Finalized by Jeromy Pal MD on 03/01/2025 12:52 AM Authorizing ProviderResult TypeResult StatusStevgina Pierre MDLuca DIAGNOSTIC IMAGING ORDERABLESFinal Result * CT brain without contrast (03/01/2025 12:06 AM EDT)Anatomical RegionLaterality ModalityNeuro, Head, Head and Neck, Neuro CoveraN/AComputed TomographySpecimen (Source)Anatomical Location / LateralityCollection Method / VolumeCollection TimeReceived Time03/01/2025 12:49 AM EDT Narrative 03/01/2025 12:[address] BRAIN WO CONT CLINICAL HISTORY: ??altered mental, transient altered level of awareness. COMPARISON: None. TECHNIQUE: CT head was performed without contrast using the standard protocol. Automated exposure control was utilized. FINDINGS: No acute, territorial region of diminished jordan-white differentiation. ??No acute intracranial hemorrhage. Unchanged coarse calcification within right centrum semiovale. Encephalomalacia right temporal pole. No sign of ventricular outflow obstruction. Rycb-wj-utpuwwnv global parenchymal volume loss notable disproportionate hippocampal volume loss;. ??Mild ??heterogeneity through the deep, periventricular white matter, most often seen in the setting of chronic microvascular ischemia. Intracranial vascular calcifications. Expanded sella which appears empty. Unremarkable temporal bone structures, suprahyoid neck. Lens replacements. Unremarkable scalp soft tissues. Hyperostosis frontalis interna. Osteopenia with area of dehiscenceabout the right pterional region. IMPRESSION: 1. No acute intracranial abnormality, by CT. 2. Disproportionate hippocampal volume loss, correlate for clinical signs of underlying neurodegenerative process. Hippocampal calcifications, associated with smoking, diabetes, etc. All CT scans at this facility use dose modulation, iterative reconstruction, and/or weight based dosing when appropriate to reduce radiation dose to as low as reasonably achievable. Finalized by Jeromy Pal MD on 03/01/2025 12:51 AM Procedure Note Jeromy Pal MD - 03/01/2025 CT BRAIN WO CONT CLINICAL HISTORY: altered mental, transient altered level of awareness. COMPARISON: None. TECHNIQUE: CT head was performed without contrast using the standardprotocol. Automated exposure control was utilized. FINDINGS: No acute, territorial region of diminished jordan-white differentiation. Noacute intracranial hemorrhage. Unchanged coarse calcification within rightcentrum semiovale. Encephalomalacia right temporal pole. No sign of ventricular outflow obstruction. Ypye-me-qqwfkvza global parenchymal volume loss notable disproportionate hippocampal volume loss;. Mild heterogeneity through the deep,periventricular white matter, most often seen in the setting of chronicmicrovascular ischemia. Intracranial vascular calcifications. Expanded sella which appearsempty. Unremarkable temporal bone structures, suprahyoid neck. Lensreplacements. Unremarkable scalp soft tissues. Hyperostosis frontalis interna.Osteopenia with area of dehiscence about the right pterional region. IMPRESSION: 1. No acute intracranial abnormality, by CT. 2. Disproportionate hippocampal volume loss, correlate for clinical signsof underlying neurodegenerative process. Hippocampal calcifications,associated with smoking, diabetes, etc. All CT scans at this facility use dose modulation, iterativereconstruction, and/or weight based dosing when appropriate to reduceradiation dose to as low as reasonably achievable. Finalized by Jeromy Pal MD on 03/01/2025 12:51 AM Authorizing ProviderResult TypeResult Ayleen FRENCH CT ORDERABLES Final Result * ECG 12 lead (02/28/2025 11:03 PM EDT)Specimen (Source)Anatomical Location / LateralityCollection Method / VolumeCollection TimeReceived Time02/28/2025 11:03 PM EDT Narrative TRACEMASTERVUE - 03/29/2025 2:03 PM EDT Authorizing ProviderResult TypeResult Ayleen ANNE ORDERABLESFinal ResultPerforming OrganizationAddressCity/State/ZIP CodePhone Number [facility] * Troponin I, High Sensitivity 0 Hour (02/28/2025 10:59 PM EDT)ComponentValueRef RangeTest MethodAnalysis TimePerformed AtPathologist SignatureTROPONIN I, HIGH SENSITIVITY3<16 ng/L02/28/2025 11:30 PM EDTPROMEDICA [facility] Specimen (Source)Anatomical Location / LateralityCollection Method / Volume Collection TimeReceived TimeBloodVenous blood / UnknownVenipuncture / Unknown 02/28/2025 10:59 PM EDT02/28/2025 11:03 PM EDT Narrative Authorizing ProviderResult TypeResult StatusStsandeep BAUM BLOOD ORDERABLES Final ResultPerforming OrganizationAddressCity/State/ZIP CodePhone Number [facility] [address] [place] [address], * (ABNORMAL) Hemoglobin A1c (02/28/2025 10:59 PM EDT)ComponentValueRef RangeTest MethodAnalysis TimePerformed AtPathologist SignatureHEMOGLOBIN A1C11.5(H)4.4 - 5.6 %03/02/2025 11:39 AM [facility] LABORATORYComment: ?ADA Guidelines ?Result ?HgbA1c ? Normal : ? less than 5.7 % ? Prediabetes : ?5.7 % ??to 6.4 % Diabetes : > 6.4 % ?Use with caution in patients with abnormal hemoglobin variants as ??the half-life of red blood cells and in vivo glycation rates are ??affected. EST. AVERAGE DVWHZTR736hz/dL03/02/2025 11:39 AM [facility] LABORATORYSpecimen (Source)Anatomical Location / LateralityCollection Method / VolumeCollection TimeReceived TimeBloodVenous blood / UnknownVenipuncture / Khjyegw7202/28/2025 10:59 PM EDT02/28/2025 11:03 PM EDT Narrative Authorizing ProviderResult TypeResult StatusRuqihaley BAUM BLOOD ORDERABLESFinal ResultPerforming OrganizationAddressCity/State/ZIP CodePhone Number [facility] [address] [place] [address], * (ABNORMAL) POCT Nursing Urine Macroscopic UA (02/28/2025 10:56 PM EDT) ComponentValueRef RangeTest MethodAnalysis TimePerformed AtPathologist [facility] Urine Specific Gravity1.0101.010, 1.015, 1.020, 1.3348902/28/2025 10:59 PM [facility] Urine Leukocyte Esterase BkhgjjvpGzybbskt44/27/2025 10:59 PM EDTPH[facility] Urine TutzczbRetwuliuMwmcjpgh38/27/2025 10:59 PM EDTPH[facility] Urine pH6.05.0, 6.0, 6.5, 7.0, 7.5, 8.0, 8.5, 5. 10:59 PM EDTPHOLZER [facility] Urine ProteinNegativeNegative 02/28/2025 10:59 PM [facility] Urine Glucose >=1000 mg/dL(A)Fsakrpcm35/27/2025 10:59 PM EDTPHOL[facility] Urine KfhdsgkVmneqzzuLtrpclch18/27/2025 10:59 PM [facility] Urine Urobilinogen0.2 E.U./dL02/28/2025 10:59 PM [facility]TPH[facility] Urine BilirubinNegativeNegative 02/28/2025 10:[address] [facility] Urine Blood/HGB Trace(A)Feeblijh73/27/2025 10:59 PM [facility] Specimen (Source)Anatomical Location / LateralityCollection Method / Volume Collection TimeReceived GzjdUgssz62/27/2025 10:56 PM EDT02/28/2025 10:59 PM EDT Narrative Authorizing ProviderResult TypeResult StatusSteven Kal Pierre MDPOINT OF CARE TEST ORDERABLESFinal ResultPerforming OrganizationAddReading Hospitalty/[facility]/ZIP CodePhone Number [address] [place] [address], [place] * Extra Urine [place] (02/28/2025 10:54 PM EDT)ComponentValueRef RangeTest Method Analysis TimePerformed AtPathologist SignatureExtra TubeAuto Resulted 03/01/2025 12:02 AM [facility] (Source) Anatomical Location / LateralityCollection Method / VolumeCollection Time Received TimeUrineUrine specimen collection, clean catch / Knwomnp4202/28/2025 10:54 PM EDT02/28/2025 11:03 PM EDT Narrative Authorizing ProviderResult TypeResult StatusEleazar Pierre MDURINE ORDERABLES Final ResultPerforming OrganizationAddressty/State/ZIP CodePhone Number [address] [place] [address], [place] * Extra Urine (02/28/2025 10:54 PM EDT)ComponentValueRef RangeTest Method Analysis TimePerformed AtPathologist SignatureExtra TubeAuto Resulted 03/01/2025 12:02 AM [facility] (Source) Anatomical Location / LateralityCollection Method / VolumeCollection Time Received TimeUrineUrine specimen collection, clean catch / Oqmkngo1802/28/2025 10:54 PM EDT02/28/2025 11:03 PM EDT Narrative Authorizing ProviderResult TypeResult Ayleen GRAHAM ORDERABLES Final ResultPerforming OrganizationAddInd[facility]/State/ZIP CodePhone Number [address] [place] [address], [place] * (ABNORMAL) Urine Culture Urine, Clean Catch Midstream (02/28/2025 10:54 PM EDT)ComponentValueRef RangeTest MethodAnalysis TimePerformed AtPathologist SignatureCULTURE ECGXWCP77,000-50,000 CFU/mL Escherichia coli(A)03/03/2025 8:19 AM [facility] LABORATORYSpecimen (Source)Anatomical Location / LateralityCollection Method / VolumeCollection TimeReceived Time UrineUrine specimen collection, clean catch / Jtnnofq8402/28/2025 10:54 PM EDT 02/28/2025 11:03 PM EDT Narrative [facility] - 03/03/2025 8:19 AM EDT Along with <10,000 CFU/mL Normal Urogenital Shellie. OrganismAntibioticMethodSusceptibilityEscherichia coliAmpicillin <=2.0: Susceptible Escherichia coliAMP/SULBACTAM <=2.0: Susceptible Escherichia coliPIPERACIL/TAZOBACTAM <=4.0: Susceptible Escherichia coliCefazolin (non-urinary) <=1.0: Susceptible Escherichia coliCefazolin (urinary) <=1.0: Susceptible Escherichia coliCeftriaxone <=0.25: Susceptible Escherichia coliGentamicin <=1.0: Susceptible Escherichia coliCiprofloxacin <=0.06: Susceptible Escherichia coliLevofloxacin <=0.12: Susceptible Escherichia coliNitrofurantoin <=16.0: Susceptible Escherichia coliTrimethoprim + Sulfamethoxazole <=1.0: Susceptible Authorizing ProviderResult TypeResult StatusSteven C Wing MDMICROBIOLOGY - GENERAL ORDERABLESFinal ResultPerforming OrganizationAddressCity/State/ZIP Code Phone Number [facility] [address] [place] [address], from Last 3 Months Insurance Advance Directives TypeDate RecordedPatient RepresentativeExplanationDNR Physician Order03/11/2021 11:35 AMAdvance Directive02/08/2021 1:30 PMMedical POA/Living Will * DNR Comfort Care Arrest (DNR-CCA) [place] (Latest Code Status on File) Date ActivatedDate InactivatedComments03/01/2025 1:09 AM03/03/2025 6:07 PM * DNR Comfort Care Arrest (DNR-CCA) [place] Date ActivatedDate InactivatedComments02/18/2021 8:49 PM02/21/2021 2:59 PM * Full Code Date ActivatedDate InactivatedComments11/15/2020 8:42 PM11/24/2020 3:34 PM * DNR Comfort Care Arrest (DNR-CCA) [place] Date ActivatedDate InactivatedComments06/19/2020 4:13 PM06/19/2020 8:31 PM Care Teams Team MemberRelationshipSpecialtyStart DateEnd Date Marilu Ocampo MD [address], [facility] [place] [address] PCP - GeneralInternal Yibwvrlt49/4/24
== END 2025-04-15 09:51 | disposition home or self-care (01) ==
LOC: WC 09:51
PROVIDERS: PCP Family Medicine; Visit Provider Podiatrist Foot & Ankle Surgery
DX: E11.621 Type 2 diabetes mellitus with foot ulcer (principal); L97.421 Non-pressure chronic ulcer of left heel and midfoot limited to breakdown of skin
CPT/HCPCS: G0463

== ENCOUNTER 2025-05-13 10:12 | Outpatient (OUT) | payer MEDICARE, MEDICAID, SELFPAY | END 2025-05-13 10:13 | disposition home or self-care (01) | LOC: WC 10:13 | PROVIDERS: PCP Family Medicine; Visit Provider Physician Assistant | DX: E11.621 Type 2 diabetes mellitus with foot ulcer (principal); L97.421 Non-pressure chronic ulcer of left heel and midfoot limited to breakdown of skin | CPT/HCPCS: G0463 ==